=== PATIENT | female | born 1980 | race Two or more races ===

== ENCOUNTER 2018-01-06 18:42 | Emergency (ER) | payer OTHER ==
[~2018-01-06] VITALS: Ht 162.6 cm; Wt 74.8 kg
[2018-01-07 00:29] VITALS: BP 139/88
[2018-01-07] MEDS ORDERED: CYCLOBENZAPRINE HCL 10 MG TAB PO ONE (00:45)
[2018-01-07] MEDS ORDERED: IBUPROFEN 600 MG TAB PO ONE (00:45)
== END 2018-01-07 01:44 | disposition home or self-care (01) ==
LOC: ER 18:47
DX: S39.012A Strain of muscle, fascia and tendon of lower back, initial encounter (principal); S00.83XA Contusion of other part of head, initial encounter; V43.52XA Car driver injured in collision with other type car in traffic accident, initial encounter; Y93.89 Activity, other specified; Y99.8 Other external cause status; Y92.410 Unspecified street and highway as the place of occurrence of the external cause
CPT/HCPCS: 70486; 72131

== ENCOUNTER 2019-08-18 10:32 | Emergency (ER) | payer BC ==
[~2019-08-18] VITALS: Ht 162.6 cm; Wt 72.6 kg
[2019-08-18 11:20] LABS: Basophils # (auto) 0.1 uL; Eosinophils # (auto) 0.2 uL; Eosinophils % (auto) 2.8 % (0.0-7.0); Hematocrit 43.8 % (36.0-46.0); Lymphocytes # (auto) 1.4 uL; Lymphocytes % (auto) 23.4 % (10.0-50.0); Mean Corpuscular Hemoglobin 31.8 pg (28.0-32.0); Mean Corpuscular Hgb Conc. 34.3 g/dL (32.0-36.0); Mean Corpuscular Volume 92.8 fL (80.0-100.0); Monocytes # (auto) 0.5 uL; Monocytes % (auto) 7.9 % (0.0-12.0); Neutrophils # (auto) 3.9 uL; Neutrophils % (auto) 64.9 % (37.0-80.0); Nucleated Red Blood Cells % 0.1 %; Platelet Count (auto) 178 10^3/uL (140-450); Red Blood Cells 4.72 10^6/uL (4.0-5.20); Red Cell Distribution Width 13.2 % (11.8-14.3); White Blood Cell 6.1 10^3/uL (4.4-10.8)
[2019-08-18 11:35] LABS: Chloride 109 mmol/L (98-107); Potassium 3.8 mmol/L (3.5-5.1); Sodium 142 mmol/L (136-145)
[2019-08-18 11:47] LABS: Alanine Aminotransferase 17 U/L (13-56); Albumin 3.8 g/dL (3.4-5.0); Alkaline Phosphatase 59 U/L (45-117); Anion Gap 6 (5-15); Aspartate Aminotransferase 11 U/L (15-37); BUN/Creatinine Ratio 13.2; Bilirubin, Total 3.4 mg/dL (0.2-1.0); Blood Urea Nitrogen 9 mg/dL (7-18); Calcium 8.6 mg/dL (8.5-10.1); Carbon Dioxide 27 mmol/L (21-32); GFR African American 125 mL/min; GFR Non-African American 103 mL/min; Glucose 97 mg/dL (74-106); Total Protein 6.9 g/dL (6.4-8.2)
[2019-08-18 14:20] VITALS: BP 115/48
== END 2019-08-18 14:27 | disposition home or self-care (01) ==
LOC: ER 10:32
DX: G43.909 Migraine, unspecified, not intractable, without status migrainosus (principal)
CPT/HCPCS: 36415; 70450; 80053; 84484; 85025; 94761

== ENCOUNTER 2024-03-21 18:12 | Emergency (ER) | payer BC, OTHER ==
[~2024-03-21] VITALS: Ht 162.6 cm; Wt 68.1 kg
[2024-03-21 21:26] VITALS: BP 130/70; PULSE 80; RESP 18; TEMP 99.5; O2SAT 99
[2024-03-21] MEDS: LIDOCAINE 5% TOPICAL PATCH TOP ONE (21:42)
[2024-03-21] MEDS: KETOROLAC TROMETH 60MG/2ML VIAL IM ONE (21:42)
[2024-03-21] MEDS ORDERED: METH-1182 PO (21:55)
[2024-03-21] MEDS ORDERED: CYCL-614 PO (21:55)
== END 2024-03-21 22:01 | disposition home or self-care (01) ==
LOC: ER 18:12
DX: M54.42 Lumbago with sciatica, left side (principal)
CPT/HCPCS: 96372; 99283; J1885

== ENCOUNTER 2025-09-16 13:48 | Emergency (ER) | payer BC ==
[~2025-09-16] VITALS: Ht 162.6 cm; Wt 59.2 kg
[~2025-09-16 13:48] MED LIST: CYCL-614 PO; METH-1182 PO
--- NOTE | 2025-09-16 15:11 | ED.PDOC ---
Musculoskeletal HPI Comments A 45 YEAR OLD FEMALE PRESENTS TO THE ED WITH COMPLAINT OF FALL INJURY. PT STATES SHE WAS AT WORK THURSDAY, 2 DAYS PRIOR AND HAD SLIP AND FELL. PT DENIES ANY HEAD INJURY BUT HAS SINCE BEEN HAVING LOWER BACK PAIN, R SIDED HIP PAIN AND R KNEE PAIN. PT HAS BEEN TAKING PAIN MEDICATIONS BUT HAS SINCE BEEN HAVING INCREASED PAIN WITH BEARING WEIGHT AND WHEN ATTEMPTING TO EXTEND R KNEE. PATIENT DENIES FEVER, CHILLS, SHORTNESS OF BREATH, CHEST PAIN, ABDOMINAL PAIN, NAUSEA, VOMITING, HEADACHE, OR OTHER COMPLAINTS. NO OTHER SYMPTOMS OR MODIFYING FACTORS AT THIS TIME. PATIENT IS ALERT, ORIENTED X 4, AND HAS STEADY GAIT. Chief Complaint: Fall Injury Time Seen by MD: 15:08 Primary Care Provider: UNK Reviewed Notes: Nurses Notes, Medications, Allergies Allergies: Coded Allergies: NO KNOWN ALLERGIES (Unverified , 01/06/18) Home Meds Active Scripts Hydrocodone-Acetaminophen (Hydrocodone Bitartrate/AC 5-325 mg) 1 Tab Tab, 1 TAB PO BID, #14 TAB Prov:GUY KEATING 09/16/25 Methocarbamol (Methocarbamol) 750 Mg Tab, 750 MG PO BID, #20 TAB Prov:GUY KEATING 09/16/25 Cyclobenzaprine HCl (Cyclobenzaprine Hydrochlo) 5 Mg Tab, 5 MG PO TIDPRN PRN, #15 TAB Prov:STEPHANIE MEADOWS 03/21/24 Methocarbamol (Methocarbamol) 750 Mg Tab, 1500 MG PO QID for 30 Days, #240 TAB Prov:STEPHANIE MEADOWS 03/21/24 Information Source: Patient Mode of Arrival: Ambulatory Brought in by: SELF Location: Right Extremity Location: Back, Hip, Knee Timing: Days Prehospital treatment: None Severity: Moderate Able to Move Extremity: Yes Bear Weight: Limited Pain: Moderate Hand Dominance: Right Mechanism: Hyperextension Circumstances: Work Related, Fall Symptoms: Pain DVT Risk Factors: NONE Last Tetanus: UTD Associated signs and symptoms: Knee pain, Back pain, Hip pain Past Medical History PAST MEDICAL HISTORY: Denies Past Medical History (Other): chronic low back pain Surgical History: Denies all surgeries PROJECT FACILITATOR History: No Pertinent PROJECT FACILITATOR History Family History Family History: Reviewed,noncontributory to illness Social History Smoker: Non-Smoker Alcohol: Occasionally Drugs: Denies Drug Use Lives In: Home Constitutional: denies: chills, diaphoresis, fatigue, fever, malaise, sweats, weakness, others EENTM: denies: blurred vision, double vision, ear bleeding, ear discharge, ear drainage, ear pain, ear ringing, eye pain, eye redness, hearing loss, mouth pain, mouth swelling, nasal discharge, nose bleeding, nose congestion, nose pain, photophobia, tearing, throat pain, throat swelling, voice changes, others Respiratory: denies: cough, hemoptysis, orthopnea, SOB at rest, shortness of breath, SOB with excertion, stridor, wheezing, others Cardiovascular: denies: chest pain, dizzy spells, diaphoresis, Dyspnea on exe rtion, edema, irregular heart beat, left arm pain, lightheadedness, palpitations, PND, syncope, others Gastrointestinal: denies: abdomen distended, abdominal pain, blood streaked bowels, constipated, diarrhea, dysphagia, difficulty swallowing, hematemesis, melena, nausea, poor appetite, poor fluid intake, rectal bleeding, rectal pain, vomiting, others Genitourinary: denies: abnormal vagina bleeding, burning, dyspareunia, dysuria, flank pain, frequency, hematuria, incontinence, pain, , vagina discharge, urgency, others Neurological: denies: dizziness, fainting, headache, left sided numbness, left sided weakness, numbness, paresthesia, pre-existing deficit, right sided numbness, right sided weakness, seizure, speech problems, tingling, tremors, weakness, others Musculoskeletal: reports: back pain, joint pain (R KNEE), joint swelling, muscle pain; denies: gout, muscle stiffness, neck pain, others Integumetry: denies: bruises, change in color, change in hair/nails, dryness, laceration, lesions, lumps, rash, wounds, others Allergic/Immunocompromised: denies: Difficulty Healing, Frequent Infections, Hives, Itching, others Hematologic/Lymphatic: denies: anemia, blood clots, easy bleeding, easy bruising, swollen glands, others Endocrine: denies: excessive hunger, excessive sweating, excessive thirst, excessive urination, flushing, intolerance to cold, intolerance to heat, unexplained weight gain, unexplained weight loss, others Psychiatric: denies: anxiety, bipolar disorder, depression, hopeless, panic disorder, schizophrenia, sleepless, suicidal, others All Other Systems: Reviewed and Negative Physical Exam General Appearance: No Apparent Distress, Normal HEENT: Normal ENT Inspection, PERRL/EOMI, Pharynx Normal, TMs Normal Neck: Full Range of Motion, Non-Tender, Normal, Normal Inspection Respiratory: Chest Non-Tender, Lungs Clear, No Accessory Muscle Use, No Respiratory Distress, Normal Breath Sounds Cardiovascular: No Edema, No JVD, No Murmur, No Gallop, Normal Peripheral Pulses, Regular Rate/Rhythm Breast Exam: Deferred Gastrointestinal: No Organomegaly, Non Tender, No Pulsatile Mass, Normal Bowel Sounds, Soft Genitalia: Deferred Pelvic: Deferred Rectal: Deferred Extremities: Decreased range of motion, No calf tenderness, Normal capillary refill, No pedal edema, Swelling (TENDERNESS AND MILD SWELLING ON RIGHT KNEE, NO BONY TENDERNESS, SWELLING AND DEFORMITY. ), Tender (ON RIGHT HIP, NO BONY TENDERNESS, SWELLING AND DEFORMITY. ) Musculoskeletal : Location: Bilateral Extremity Location: Back Apperance: Tenderness: Moderate (TENDERNESS AND MUSCLE SPASM ON LOWER BACK, NO BONY TENDERNESS, SWELLING AND DEFORMITY. ) Neurologic: Alert, bioassayist II-XII nml as Tested, No Motor Deficits, Normal Affect, Normal Mood, No Sensory Deficits Cerebellar Function: Normal Reflexes: Normal Skin: Dry, Normal Color, Warm Peripheral Pulses: 2+ carotid (R), 2+ carotid (L), 2+ dorsalis pedis (R), 2+ dorsalis pedis (L) Lymphatic: No Adenopathy Was a procedure done? Was a procedure done?: No Differential Diagnosis EXT Differential Diagnosis: Fracture, Sprain, DJD, Strain, Bursitis Other Differential Diagnosis LUMBAR RADICULOPATHY, R KNEE SPRAIN, MUSCLE STRAIN, SPASM X-Ray, Labs, Meds, VS Vital Signs Date Time Temp Pulse Resp B/P (MAP) Pulse Ox O2 Delivery O2 Flow Rate FiO2 09/16/25 13:52 98.3 80 18 124/75 97 98.3 Current Medications Medications (Trade) Dose Ordered Sig/Kamari Route Start Time Stop Time Status Last Admin Acetaminophen/ Hydrocodone Bitart ([place] 5/325MG Tab) 1 tab ONCE ONCE PO 09/16/25 15:00 09/16/25 15:01 DC 09/16/25 15:32 [place] [id number] Ph: [phone] DIAGNOSTIC IMAGING Diagnostic Imaging Report : [id number] Signed PATIENT: LONG BRIDGES ACCT: [id number] UNIT: [id number] : 1980 LOC: ER ROOM / BED: / AGE / SEX: 45 / F ADM STATUS: REG ER SERVICE [facility] ORDERING PHYSICIAN: GUY KEATING PROCEDURE(s): LUMB2 - LUMBAR SPINE 3 VIEW REASON: FALL ORDER NUMBER(s): [id number], ACCESSION NUMBER(s): [id number] EXAM: XY LUMBAR SPINE 3 VIEW INDICATION: FALL TECHNIQUE: 3 views of the lumbar spine COMPARISON: None FINDINGS/IMPRESSION: No radiographic evidence of an acute osseous abnormality. There is no acute fracture, osseous malalignment, or aggressive focal osseous lesion. No endplate compression fracture, spondylolisthesis, or pars defect. ATED BY: DEVYN ANDRADE MD DICTATED DATE/TIME: 09/16/251556 SIGNED BY: DEVYN ANDRADE MD SIGNED DATE/TIME: 09/16/25 155 CC: [place] [id number] Ph: [phone] DIAGNOSTIC IMAGING Diagnostic Imaging Report : [id number] Signed PATIENT: LONG BRIDGES ACCT: [id number] UNIT: [id number] : 1980 LOC: ER ROOM / BED: / AGE / SEX: 45 / F ADM STATUS: REG ER SERVICE [facility] ORDERING PHYSICIAN: GUY KEATING PROCEDURE(s): RKNE2 - R KNEE 2V XRAY REASON: FALL ORDER NUMBER(s): [id number], ACCESSION NUMBER(s): [id number] EXAM: XY R KNEE 2V XRAY INDICATION: FALL TECHNIQUE: 2 views of the right knee COMPARISON: XY R HIP COMPLETE XRAY on DOS: 09/16/25 FINDINGS: No radiographic evidence of an acute osseous abnormality. There is no acute fracture, osseous malalignment, or aggressive focal osseous lesion. There is no radiographically apparent joint space narrowing. No joint effusion. IMPRESSION: 1. No radiographic evidence of an acute osseous abnormality. ATED BY: DEVYN ANDRADE MD DICTATED DATE/TIME: 09/16/251557 SIGNED BY: DEVYN ANDRADE MD SIGNED DATE/TIME: 09/16/251557 CC: [place] [id number] Ph: [phone] DIAGNOSTIC IMAGING Diagnostic Imaging Report : [id number] Signed PATIENT: LONG BRIDGES ACCT: [id number] UNIT: [id number] : 1980 LOC: ER ROOM / BED: / AGE / SEX: 45 / F ADM STATUS: REG ER SERVICE 50 ORDERING PHYSICIAN: GUY KEATING PROCEDURE(s): RHIP - R HIP COMPLETE XRAY REASON: FALL ORDER NUMBER(s): [id number], ACCESSION NUMBER(s): [id number] EXAM: XY R HIP COMPLETE XRAY INDICATION: FALL TECHNIQUE: Frontal radiographs of the hip and pelvis and frog-leg lateral view left hip COMPARISON: None FINDINGS/IMPRESSION: No radiographic evidence of an acute fracture, osseous malalignment, or aggressive osseous lesion. No radiographic evidence of significant hip joint space loss. Symmetric sacroiliac joints. Normal pubic symphyseal joint. ATED BY: DEVYN ANDRADE MD DICTATED DATE/TIME: 09/16/251557 SIGNED BY: DEVYN ANDRADE MD SIGNED DATE/TIME: 09/16/251557 CC: X-Ray, Labs, Meds, VS Comment COURSE: EXTERNAL MEDICAL RECORDS REVIEWED: [NONE] INDEPENDENT HISTORIANS: [NONE] SOCIAL DETERMINANTS OF HEALTH: [NONE] LABS ORDERED: NONE REVIEWED AND INTERPRETED RESULTS: NONE IMAGING ORDERED: R HIP X-RAY, R KNEE X-RAY, LUMBAR SPINE X-RAY TREATMENTS ORDERED: NORCO 5/325 1 TAB PO PROCEDURES PERFORMED: NONE CRITICAL CARE TIME: NONE I HAVE DISCUSSED THE PATIENT WITH THE ATTENDING PHYSICIAN, DR. WALTER, HE AGREES WITH THE PATIENT'S PLAN OF CARE AND DISPOSITION. BASED ON HISTORY OF PRESENT ILLNESS, AND PHYSICAL EXAM, PATIENT WILL BE DISCHARGED HOME. DISCUSSED PLAN FOR DISCHARGE HOME WITH RX [NORCO AND ROBAXIN]. MEDICATION WARNINGS GIVEN. SHARED DECISION MAKING: DISCUSSED WITH PATIENT THAT THEIR WORKUP WAS NORMAL. PATIENT INSTRUCTED TO FOLLOW UP WITH PRIMARY CARE PROVIDER IN 1-2 DAYS FOR RE- EVALUATION OF SYMPTOMS. PATIENT VERBALIZES UNDERSTANDING TO RETURN TO ED FOR NEW OR WORSENING SYMPTOMS OR IF FOLLOW UP WITH PCP CANNOT BE OBTAINED. PATIENT FEELS COMFORTABLE GOING HOME AT THIS TIME. ALL QUESTIONS ADDRESSED AT TIME OF DISCHARGE. Time of 1ST Reevaluation: 15:40 Reevaluation 1ST: Improved Patient Education/Counseling: Diagnosis, Treatment, Need For Follow Up Family Education/Counseling: Diagnosis, Treatment, Need For Follow Up Medical Screening: No EMC Exist At This Time Departure 1 Departure Time of Disposition: 16:32 Impression: Primary Impression: Strain of muscle, fascia and tendon of lower back, initial encounter Additional Impressions: Right knee sprain Qualified Codes: S83.8X1A - Sprain of other specified parts of right knee, initial encounter Strain of right hip Qualified Codes: S76.011A - Strain of muscle, fascia and tendon of right hip, initial encounter Status post fall Disposition: 01 HOME / SELF CARE / HOMELESS Condition: Stable Additional Instructions: INSTRUCTIONS: FOLLOW-UP WITH [facility] IN 1 TO 2 DAYS. TAKE MEDICATIONS PRESCRIBED. RETURN TO ED FOR ANY NEW OR WORSENING SYMPTOMS. e-Prescriptions Hydrocodone-Acetaminophen (Hydrocodone Bitartrate/AC 5-325 mg) 1 Tab Tab 1 TAB PO BID, #14 TAB Prov: GUY KEATING 09/16/25 Methocarbamol (Methocarbamol) 750 Mg Tab 750 MG PO BID, #20 TAB Prov: GUY KEATING 09/16/25 Discharged With: Self, Relative Critical Care Note Critical Care Time?: No Stability Stability form required: No Heart Score Heart Score: Heart Score Response (Comments) Value History N/A 0 EKG N/A 0 Age N/A 0 Risk Factors N/A 0 Troponin N/A 0 Total 0 I personally scribed for GUY KEATING ([email or web address]) on 09/16/25 at 15:11. Electronically submitted by Nathen Beckwith ([email or web address]). I personally scribed for GUY KEATING ([email or web address]) on 09/16/25 at 16:13. Electronically submitted by Nathen Beckwith ([email or web address]). GUY KEATING Sep 16, 2025 15:11
[2025-09-16] MEDS: HYDROcodone-ACET 5/325MG TAB PO ONE (15:32)
--- NOTE | 2025-09-16 16:00 | DVH ---
EXAM: XY LUMBAR SPINE 3 VIEW INDICATION: FALL TECHNIQUE: 3 views of the lumbar spine COMPARISON: None FINDINGS/IMPRESSION: No radiographic evidence of an acute osseous abnormality. There is no acute fracture, osseous malalig nment, or aggressive focal osseous lesion. No endplate compression fracture, spondylolisthesis, or pa rs defect.
--- NOTE | 2025-09-16 16:00 | DVH ---
EXAM: XY R HIP COMPLETE XRAY INDICATION: FALL TECHNIQUE: Frontal radiographs of the hip and pelvis and frog-leg lateral view left hip COMPARISON: None FINDINGS/IMPRESSION: No radiographic evidence of an acute fracture, osseous malalignment, or aggressive osseous lesion. N o radiographic evidence of significant hip joint space loss. Symmetric sacroiliac joints. Normal pu bic symphyseal joint.
--- NOTE | 2025-09-16 16:00 | DVH ---
EXAM: XY R KNEE 2V XRAY INDICATION: FALL TECHNIQUE: 2 views of the right knee COMPARISON: XY R HIP COMPLETE XRAY on DOS: 09/16/25 FINDINGS: No radiographic evidence of an acute osseous abnormality. There is no acute fracture, osseous malalig nment, or aggressive focal osseous lesion. There is no radiographically apparent joint space narrowin g. No joint effusion. IMPRESSION: 1. No radiographic evidence of an acute osseous abnormality.
[2025-09-16] MEDS ORDERED: HYDR-4902 PO (16:24)
[2025-09-16] MEDS ORDERED: METH-1182 PO (16:24)
[2025-09-16 16:34] VITALS: BP 122/76; TEMP 98.2
[2025-09-16 16:42] VITALS: PULSE 64; RESP 16; O2SAT 95
== END 2025-09-16 16:43 | disposition home or self-care (01) ==
LOC: ER 13:48
DX: S83.91XA Sprain of unspecified site of right knee, initial encounter (principal); S76.011A Strain of muscle, fascia and tendon of right hip, initial encounter; S39.012A Strain of muscle, fascia and tendon of lower back, initial encounter; F10.90 Alcohol use, unspecified, uncomplicated; G89.29 Other chronic pain; Z79.899 Other long term (current) drug therapy; Z79.891 Long term (current) use of opiate analgesic; W19.XXXA Unspecified fall, initial encounter; Y93.89 Activity, other specified; Y92.89 Other specified places as the place of occurrence of the external cause; Y99.8 Other external cause status; Y90.9 Presence of alcohol in blood, level not specified
CPT/HCPCS: 72100; 73502; 73560

== ENCOUNTER 2025-10-24 10:14 | Inpatient (IN) | payer BC ==
[~2025-10-24] VITALS: Ht 162.6 cm; Wt 63.3 kg
[~2025-10-24 10:14] MED LIST changes: +HYDR-4902 PO
--- NOTE | 2025-10-24 10:54 | ED.PDOC ---
General HPI Comments 45 year old female with PMHx kidney stones presents to the ED with a chief complaint of bilateral flank pain onset 2 days. Patient states she has been experiencing bilateral flank pain for the past 2 days as well as urinary frequency and nausea/vomiting. Patient has experienced kidney stones in the past, pain is similar. Denies fever, chills, dysuria, hematuria, vaginal discharge, dizziness, headache. No other symptoms or modifying factors present a t this time. Chief Complaint: Flank Pain Time Seen by MD: 10:45 Primary Care Provider: UNK Reviewed notes: Medications, Allergies Allergies: Coded Allergies: NO KNOWN ALLERGIES (Unverified , 01/06/18) Home Meds Active Scripts Hydrocodone-Acetaminophen (Hydrocodone Bitartrate/AC 5-325 mg) 1 Tab Tab, 1 TAB PO BID, #14 TAB Prov:GUY KEATING 09/16/25 Methocarbamol (Methocarbamol) 750 Mg Tab, 750 MG PO BID, #20 TAB Prov:GUY KEATING 09/16/25 Cyclobenzaprine HCl (Cyclobenzaprine Hydrochlo) 5 Mg Tab, 5 MG PO TIDPRN PRN, #15 TAB Prov:STEPHANIE MEADOWS 03/21/24 Methocarbamol (Methocarbamol) 750 Mg Tab, 1500 MG PO QID for 30 Days, #240 TAB Prov:STEPHANIE MEADOWS 03/21/24 Information Source: Patient, Spouse Mode of Arrival: Ambulatory Severity: Moderate Timing: Days Duration: Since onset Prehospital treatment: None Onset: Spontaneous Symptoms: Frequency History of: Kidney stone Location: (R) Flank, (L)Flank Modifying factors: None associated signs and symptoms: Nausea, Vomiting, Flank Pain, Frequency Past Medical History PAST MEDICAL HISTORY: Kidney Stones Surgical History: Denies all surgeries LIBRARY CATALOGING TECHNICIAN History: No Pertinent LIBRARY CATALOGING TECHNICIAN History Family History Family History: Reviewed,noncontributory to illness Social History Smoker: Non-Smoker Alcohol: Occasionally Drugs: Marijuana Lives In: Home Constitutional: denies: chills, diaphoresis, fatigue, fever, malaise, sweats, weakness, others EENTM: denies: blurred vision, double vision, ear bleeding, ear discharge, ear drainage, ear pain, ear ringing, eye pain, eye redness, hearing loss, mouth pain, mouth swelling, nasal discharge, nose bleeding, nose congestion, nose pain, photophobia, tearing, throat pain, throat swelling, voice changes, others Respiratory: denies: cough, hemoptysis, orthopnea, SOB at rest, shortness of breath, SOB with excertion, stridor, wheezing, others Cardiovascular: denies: chest pain, dizzy spells, diaphoresis, Dyspnea on exertion, edema, irregular heart beat, left arm pain, lightheadedness, palpitations, PND, syncope, others Gastrointestinal: reports: nausea, vomiting; denies: abdomen distended, abdominal pain, blood streaked bowels, constipated, diarrhea, dysphagia, difficulty swallowing, hematemesis, melena, poor appetite, poor fluid intake, rectal bleeding, rectal pain, others Genitourinary: reports: flank pain, frequency; denies: abnormal vagina bleeding, burning, dyspareunia, dysuria, hematuria, incontinence, pain, , vagina discharge, urgency, others Neurological: denies: dizziness, fainting, headache, left sided numbness, left sided weakness, numbness, paresthesia, pre-existing deficit, right sided numbness, right sided weakness, seizure, speech problems, tingling, tremors, weakness, others Musculoskeletal: denies: back pain, gout, joint pain, joint swelling, muscle pa in, muscle stiffness, neck pain, others Integumetry: denies: bruises, change in color, change in hair/nails, dryness, laceration, lesions, lumps, rash, wounds, others Allergic/Immunocompromised: denies: Difficulty Healing, Frequent Infections, Hives, Itching, others Hematologic/Lymphatic: denies: anemia, blood clots, easy bleeding, easy bruising, swollen glands, others Endocrine: denies: excessive hunger, excessive sweating, excessive thirst, excessive urination, flushing, intolerance to cold, intolerance to heat, unexplained weight gain, unexplained weight loss, others Psychiatric: denies: anxiety, bipolar disorder, depression, hopeless, panic disorder, schizophrenia, sleepless, suicidal, others All Other Systems: Reviewed and Negative Physical Exam General Appearance: Moderate Distress, Normal HEENT: Normal ENT Inspection, Pharynx Normal, TMs Normal Neck: Full Range of Motion, Non-Tender, Normal, Normal Inspection Respiratory: Chest Non-Tender, Lungs Clear, No Accessory Muscle Use, No Respiratory Distress, Normal Breath Sounds Cardiovascular: No Edema, No JVD, No Murmur, No Gallop, Normal Peripheral Pulses, Regular Rate/Rhythm Breast Exam: Deferred Gastrointestinal: No Organomegaly, Non Tender, No Pulsatile Mass, Normal Bowel Sounds, Soft Genitalia: Deferred Pelvic: Deferred Rectal: Deferred Extremities: No calf tenderness, Normal capillary refill, Normal inspection, Normal range of motion, Non-tender, No pedal edema Musculoskeletal : Apperance: Normal Neurologic: Alert, marketing intelligence analyst II-XII nml as Tested, No Motor Deficits, Normal Affect, Normal Mood, No Sensory Deficits Cerebellar Function: Normal Reflexes: Normal Skin: Dry, Normal Color, Warm Peripheral Pulses: 3+ Radial (R), 3+ Radial (L) Lymphatic: No Adenopathy Was a procedure done? Was a procedure done?: No Differential Diagnosis Kidney stone (Female): Musculoskeletal pain, Urinary obstruction, Urolithiasis X-Ray, Labs, Meds, VS Vital Signs Date Time Temp Pulse Resp B/P (MAP) Pulse Ox O2 Delivery O2 Flow Rate FiO2 10/24/25 12:12 57 16 99 Room Air* 0 21 10/24/25 12:12 57 16 125/69 (87) 99 10/24/25 10:16 97.9 55 16 141/89 99 97.9 Lab Test 10/24/25 11:22 10/24/25 10:55 Range/Units White Blood Count 5.5 4.4-10.8 10^3/uL Red Blood Count 4.47 4.0-5.20 10^6/uL Hemoglobin 14.7 12.2-16.2 g/dL Hematocrit 43.5 36.0-46.0 % Mean Corpuscular Volume 97.3 80.0-100.0 fL Mean Corpuscular Hemoglobin 32.9 H 28.0-32.0 pg Mean Corpuscular Hemoglobin Concent 33.8 32.0-36.0 g/dL Red Cell Distribution Width 12.9 11.8-14.3 % Platelet Count 196 140-450 10^3/uL Mean Platelet Volume 10.0 6.9-10.8 fL Neutrophils (%) (Auto) 57.7 37.0-80.0 % Lymphocytes (%) (Auto) 33.1 10.0-50.0 % Monocytes (%) (Auto) 7.1 0.0-12.0 % Eosinophils (%) (Auto) 1.3 0.0-7.0 % Basophils (%) (Auto) 0.8 0.0-2.0 % Neutrophils # (Auto) 3.2 1.6-8.6 10 ^3/uL Lymphocytes # (Auto) 1.8 0.4-5.4 10 ^3/uL Monocytes # (Auto) 0.4 0-1.3 10 ^3/uL Eosinophils # (Auto) 0.1 0-0.8 10 ^3/uL Basophils # (Auto) 0 0-0.2 10 ^3/uL Nucleated Red Blood Cells 0.0 % Sodium Level 143 136-145 mmol/L Potassium Level 3.3 L 3.5-5.1 mmol/L Chloride Level 107 98-107 mmol/L Carbon Dioxide Level 26 20-31 mmol/L Anion Gap 10 5-15 Blood Urea Nitrogen 12 9-23 mg/dL Creatinine 0.65 0.550-1.02 mg/dL Glomerular Filtration Rate Calc 112 >90 mL/min BUN/Creatinine Ratio 18.5 10.0-20.0 Serum Glucose 88 74-106 mg/dL Calcium Level 9.3 8.7-10.4 mg/dL Urine Color Light-yellow Yellow Urine Clarity Clear Clear Urine pH 7.0 5.0-9.0 Urine Specific [place] 1.014 1.001-1.035 Urine Protein Negative Negative Urine Ketones Negative Negative Urine Blood 3+ H Negative /uL Urine Nitrite Negative Negative Urine Bilirubin Negative Negative Urine Urobilinogen Normal Negative mg/dL Urine Leukocyte Esterase Negative Negative /uL Urine RBC 7 0 - 4 /hpf Urine Microscopic WBC 3 0-5 /HPF Urine Squamous Epithelial Cells Few <5 /hpf Urine Bacteria Few H None Seen /hpf Urine Glucose Normal Normal mg/dL Current Medications Medications (Trade) Dose Ordered Sig/Kamari Route Start Time Stop Time Status Last Admin Ondansetron HCl (Zofran) 4 mg ONCE ONCE IV 10/24/25 11:00 10/24/25 11:01 DC 10/24/25 12:35 Sodium Chloride 1,000 ml @ 1,000 mls/hr Q1H ONCE IVB 10/24/25 11:00 10/24/25 11:59 DC 10/24/25 12:35 Ketorolac Tromethamine (Toradol Injection) 30 mg ONCE ONCE IV 10/24/25 11:00 10/24/25 11:01 DC 10/24/25 12:35 Patient alert. Came in because of flank pain. Vitals stable. Answering questions. Establish intravenous access. Was given fluids. Was given pain medication. Patient continues to have abdominal pain. CT scan of the abdomen reviewed does show cystitis possibly passed a kidney stone ovarian mass possibly cystic. Explained to the patient. Continue monitoring. [place] [id number] Ph: [phone] DIAGNOSTIC IMAGING Diagnostic Imaging Report : [id number] Signed PATIENT: LONG BRIDGES ACCT: [id number] UNIT: [id number] : 1980 LOC: ER ROOM / BED: / AGE / SEX: 45 / F ADM STATUS: REG ER SERVICE 1053 ORDERING PHYSICIAN: LIZA WALTER MD PROCEDURE(s): ABPL - CT AB PEL WO CON-NO ORAL OR IV REASON: stone ORDER NUMBER(s): [id number], ACCESSION NUMBER(s): [id number] Exam: CT CT AB PEL WO CON-NO ORAL OR IV History: Stone. Comparison Study: Report from CT abdomen pelvis 11/02/2023. Technique: Multidetector spiral CT of the abdomen and pelvis was performed from lung bases to pubic symphysis. Imaging was performed without intravenous contrast. Coronal and sagittal multiplanar reformats were obtained from the axial data set by the technologist. Radiation Dose : 1. Abdomen/Pelvis: CTDIvol 5.5 mGy, DLP 273.5 mGy*cm. Findings: Evaluation of vasculature and solid organs is limited due to lack of intravenous contrast use. Lung Bases: Lung bases are clear. Visualized portions of the heart and pericardium are unremarkable. Liver: The liver is normal in size. No focal lesions. Gallbladder and Biliary Tree: The gallbladder is unremarkable No intrahepatic or extrahepatic biliary ductal dilatation. Spleen: Unremarkable Pancreas: The pancreas is grossly unremarkable. Adrenal Glands: Unremarkable Kidneys: Kidneys are unremarkable without calculi or hydronephrosis. GI tract: The stomach is grossly normal in appearance. No evidence of small bowel wall thickening or abnormal dilatation to suggest bowel obstruction. The colon is unremarkable. The appendix is visualized and is normal in caliber. Peritoneum/mesentery/retroperitoneum. No evidence of free intraperitoneal air. No ascites. No evidence of suspicious lymphadenopathy. Abdominal Wall: Unremarkable. Vasculature: The visualized abdominal aorta is normal in size and caliber. Evaluation of abdominal and pelvic vessels is limited due to lack of intravenous contrast. Urinary Bladder: Underdistended urinary bladder. There is mucosal thickening of the 3 mm. Pelvic Organs: Uterus appears enlarged. There is a left adnexal cystic mass measuring 3.1 cm. Musculoskeletal: No aggressive focal bony lesions, acute fractures or dislocation. IMPRESSION: 1. Mild wall thickening of the urinary bladder measuring up to 3 mm could be related to underdistention. Cystitis is not excluded. 2. Enlarged uterus with a left adnexal cystic mass measuring 3.1 cm. Recommend further evaluation with pelvic ultrasound. ATED BY: INEZ CARROLL MD DICTATED DATE/TIME: 10/24/251131 SIGNED BY: INEZ CARROLL MD SIGNED DATE/TIME: 10/24/25 113 CC: Time of 1ST Reevaluation: 11:15 Reevaluation 1ST: Unchanged Patient Education/Counseling: Diagnosis, Treatment, Prognosis Family Education/Counseling: Diagnosis, Treatment, Prognosis SEPSIS Sepsis Screen Date sepsis recognized/suspect: Oct 24, 2025 Time Sepsis recognized/suspect: 1016 Recent Procedure: No On Antibiotic Therapy: No Respiratory Rate >20: No Heart Rate >90: No Temp<36 C (96.8 F) or >38.3 C: No SBP <90 or MAP <65 mmHG: No New Acute Mental Status Change: No Is the patient on CPAP, BIPAP,: No Physician Orders Urinalysis (10/24/25 10:53) Ct Ab Pel Wo Con-No Oral Or Iv (10/24/25 10:53) Vital Signs Date Time Temp Pulse Resp B/P (MAP) Pulse Ox O2 Delivery O2 Flow Rate FiO2 10/24/25 12:12 57 16 99 Room Air* 0 21 10/24/25 12:12 57 16 125/69 (87) 99 10/24/25 10:16 97.9 55 16 141/89 99 97.9 Laboratory Tests Test 10/24/25 11:22 White Blood Count 5.5 10^3/uL (4.4-10.8) Medications Medications Dose Ordered Sig/Kamari Route Start Time Stop Time Status Last Admin Dose Admin Ketorolac Tromethamine 30 mg ONCE ONCE IV 10/24/25 11:00 10/24/25 11:01 DC 10/24/25 12:35 Ondansetron HCl 4 mg ONCE ONCE IV 10/24/25 11:00 10/24/25 11:01 DC 10/24/25 12:35 Sodium Chloride 1,000 ml @ 1,000 mls/hr Q1H ONCE IVB 10/24/25 11:00 10/24/25 11:59 DC 10/24/25 12:35 Departure 1 Departure Time of Disposition: 11:41 Impression: Primary Impression: Acute abdominal pain Additional Impressions: Cystitis Ovarian mass Disposition: ADMITTED INPATIENT Admit to: Med Surg Condition: Guarded Critical Care Note Critical Care Time?: No Stability Stability form required: No Heart Score Heart Score: Heart Score Response (Comments) Value History N/A 0 EKG N/A 0 Age N/A 0 Risk Factors N/A 0 Troponin N/A 0 Total 0 I personally scribed for LIZA WALTER MD ([email or web address]) on 10/24/25 at 10:54. Electronically submitted by Nadia Gross ([email or web address]). I personally scribed for LIZA WALTER MD ([email or web address]) on 10/24/25 at 11:43. Electronically submitted by Nadia Gross ([email or web address]). LIZA WALTER MD Oct 24, 2025 10:54
--- NOTE | 2025-10-24 11:35 | DVH ---
Exam: CT CT AB PEL WO CON-NO ORAL OR IV History: Stone. Comparison Study: Report from CT abdomen pelvis 11/02/2023. Technique: Multidetector spiral CT of the abdomen and pelvis was performed from lung bases to pubic symphysis. Imaging was performed without intravenous contrast. Coronal and sagittal multiplanar reformats were obtained from the axial data set by the technologist. Radiation Dose : 1. Abdomen/Pelvis: CTDIvol 5.5 mGy, DLP 273.5 mGy*cm. Findings: Evaluation of vasculature and solid organs is limited due to lack of intravenous contrast use. Lung Bases: Lung bases are clear. Visualized portions of the heart and pericardium are unremarkable. Liver: The liver is normal in size. No focal lesions. Gallbladder and Biliary Tree: The gallbladder is unremarkable No intrahepatic or extrahepatic biliary ductal dilatation. Spleen: Unremarkable Pancreas: The pancreas is grossly unremarkable. Adrenal Glands: Unremarkable Kidneys: Kidneys are unremarkable without calculi or hydronephrosis. GI tract: The stomach is grossly normal in appearance. No evidence of small bowel wall thickening or abnormal dilatation to suggest bowel obstruction. The colon is unremarkable. The appendix is visualized and is normal in caliber. Peritoneum/mesentery/retroperitoneum. No evidence of free intraperitoneal air. No ascites. No evidence of suspicious lymphadenopathy. Abdominal Wall: Unremarkable. Vasculature: The visualized abdominal aorta is normal in size and caliber. Evaluation of abdominal and pelvic vessels is limited due to lack of intravenous contrast. Urinary Bladder: Underdistended urinary bladder. There is mucosal thickening of the 3 mm. Pelvic Organs: Uterus appears enlarged. There is a left adnexal cystic mass measuring 3.1 cm. Musculoskeletal: No aggressive focal bony lesions, acute fractures or dislocation. IMPRESSION: 1. Mild wall thickening of the urinary bladder measuring up to 3 mm could be related to underdistention. Cystitis is not excluded. 2. Enlarged uterus with a left adnexal cystic mass measuring 3.1 cm. Recommend further evaluation with pelvic ultrasound.
[2025-10-24 11:50] LABS: Hematocrit 43.5 % (36.0-46.0); Hemoglobin 14.7 g/dL (12.2-16.2); Mean Corpuscular Hemoglobin 32.9 pg (28.0-32.0); Mean Corpuscular Volume 97.3 fL (80.0-100.0); Nucleated Red Blood Cells % 0.0 %
[2025-10-24 11:54] LABS: Sodium 143 mmol/L (136-145)
[2025-10-24 11:55] LABS: Anion Gap 10 (5-15); Carbon Dioxide 26 mmol/L (20-31)
[2025-10-24 11:56] LABS: Calcium 9.3 mg/dL (8.7-10.4)
[2025-10-24 11:57] LABS: Chloride 107 mmol/L (98-107); Potassium 3.3 mmol/L (3.5-5.1)
[2025-10-24 12:00] LABS: Glucose 88 mg/dL (74-106)
[2025-10-24 12:01] LABS: BUN/Creatinine Ratio 18.5 (10.0-20.0); Blood Urea Nitrogen 12 mg/dL (9-23)
[2025-10-24 12:12] VITALS: PULSE 57; RESP 16; O2SAT 99
[2025-10-24] MEDS: SODIUM CHLORIDE 0.9% 1,000 ML IVB ONE (12:35)
[2025-10-24] MEDS: KETOROLAC TROMETH 30 MG/ML 1ML VIAL IV ONE (12:35)
[2025-10-24] MEDS: ONDANSETRON HCL 4 MG/2 ML VIAL IV ONE (12:35)
[2025-10-24 12:44] LABS: Urine Protein, UAD Negative (Negative)
--- NOTE | 2025-10-24 14:09 | DVH ---
INDICATION: ovarytorision TECHNIQUE: Multiple real-time grayscale transabdominal and TV sonographic images along with color and duplex Doppler of the uterus and ovaries were obtained. COMPARISON: None FINDINGS: The uterus measures 8 x 4 x 6 cm. The endometrial stripe measures 0.3cm. The right ovary measures 3 x 2 x 1 cm. The left ovary measures 4 x 3 x 3 cm. 3 cm left ovarian cyst. Subsequent color and duplex Doppler interrogation of the ovaries demonstrated symmetric vascular flow to both ovaries, though this does not exclude the possibility of torsion due to the dual blood supply. IMPRESSION: 1. Hyperechoic shadowing structure in the posterior cul-de-sac measuring 1.4 x 1.3 x 0.8 cm. This correlates to calcification seen in the pelvis on CT dated 10/24/2025.
[2025-10-24 14:30] LABS: Alanine Aminotransferase 24.0 U/L (7-40); Alkaline Phosphatase 58.0 U/L (46-116); Total Protein 6.9 g/dL (5.7-8.2)
[2025-10-24 14:31] LABS: Albumin 4.5 g/dL (3.2-4.8)
[2025-10-24 14:32] LABS: Bilirubin, Direct 0.4 mg/dL (<0.3); Bilirubin, Total 5.3 mg/dL (0.2-1.0)
--- NOTE | 2025-10-24 14:46 | DVHHP2 ---
History of Present Illness History of Present Illness This is a 45-year-old female with a history of recurrent nephrolithiasis who came because she has been having bilateral flank discomfort for the past two days, associated with urinary tenesmus and chills. She denies dysuria but notes a sensation of incomplete emptying. She is currently menstruating. Home medications include baclofen, hydrocodoneacetaminophenand hydroxyzine; CBC is normal. CMP shows hypokalemia and indirect hyperbilirubinemia with total bilirubin 5.3 and direct bilirubin 0.4. UA shows 3+ blood but is limited by menstrual contamination. CT abdomen/pelvis shows mild bladder wall thickening possibly from underdistention versus early cystitis, and an enlarged uterus with a 3.1-cm left adnexal cyst. Pelvic ultrasound confirms a 3.1-cm left ovarian cyst with preserved blood flow and a small pelvic calcification that correlates with CT. PAST MEDICAL HISTORY: Kidney Stones INSURANCE COORDINATOR History: Patient stated she needed a procedure for possible cervical cancer on february 2025, she stated the doctor entered from her belly button and she had a small scar on [facility] Social History Smoker: Non-Smoker Alcohol: Occasionally Drugs: Marijuana Lives In: Home Review of Systems Review of Systems Positive for chills and urinary urgency sensation. Denies fever, dysuria, gross hematuria outside menstruation, nausea, vomiting, abdominal pain, chest pain, or respiratory symptoms. Allergies: Coded Allergies: NO KNOWN ALLERGIES (Unverified , 01/06/18) Medications Current Medications Medications Dose Ordered Sig/Kamari Route Start Time Stop Time Status Last Admin Dose Admin Acetaminophen 650 mg Q4HP PRN PO 10/24/25 14:15 Ketorolac Tromethamine 15 mg Q6HPRN PRN IV 10/24/25 14:15 10/29/25 14:14 Ceftriaxone Sodium 50 ml @ 100 mls/hr DAILY@09 IV 10/24/25 14:15 Exam Vital Signs Vital Signs Date Time Temp Pulse Resp B/P (MAP) Pulse Ox O2 Delivery O2 Flow Rate FiO2 10/24/25 12:12 57 16 99 Room Air* 0 21 10/24/25 12:12 125/69 (87) 10/24/25 10:16 97.9 97.9 Exam General: Alert, comfortable. Cardiac: Regular rate and rhythm. Respiratory: Clear breath sounds bilaterally. Abdomen: Soft, nondistended; mild bilateral CVA tenderness. Extremities: No edema. Neuro: Alert and oriented. Labs/Xrays Labs Test 10/24/25 11:22 10/24/25 10:55 Range/Units White Blood Count 5.5 4.4-10.8 10^3/uL Red Blood Count 4.47 4.0-5.20 10^6/uL Hemoglobin 14.7 12.2-16.2 g/dL Hematocrit 43.5 36.0-46.0 % Mean Corpuscular Volume 97.3 80.0-100.0 fL Mean Corpuscular Hemoglobin 32.9 H 28.0-32.0 pg Mean Corpuscular Hemoglobin Concent 33.8 32.0-36.0 g/dL Red Cell Distribution Width 12.9 11.8-14.3 % Platelet Count 196 140-450 10^3/uL Mean Platelet Volume 10.0 6.9-10.8 fL Neutrophils (%) (Auto) 57.7 37.0-80.0 % Lymphocytes (%) (Auto) 33.1 10.0-50.0 % Monocytes (%) (Auto) 7.1 0.0-12.0 % Eosinophils (%) (Auto) 1.3 0.0-7.0 % Basophils (%) (Auto) 0.8 0.0-2.0 % Neutrophils # (Auto) 3.2 1.6-8.6 10 ^3/uL Lymphocytes # (Auto) 1.8 0.4-5.4 10 ^3/uL Monocytes # (Auto) 0.4 0-1.3 10 ^3/uL Eosinophils # (Auto) 0.1 0-0.8 10 ^3/uL Basophils # (Auto) 0 0-0.2 10 ^3/uL Nucleated Red Blood Cells 0.0 % Sodium Level 143 136-145 mmol/L Potassium Level 3.3 L 3.5-5.1 mmol/L Chloride Level 107 98-107 mmol/L Carbon Dioxide Level 26 20-31 mmol/L Anion Gap 10 5-15 Blood Urea Nitrogen 12 9-23 mg/dL Creatinine 0.65 0.550-1.02 mg/dL Glomerular Filtration Rate Calc 112 >90 mL/min BUN/Creatinine Ratio 18.5 10.0-20.0 Serum Glucose 88 74-106 mg/dL Calcium Level 9.3 8.7-10.4 mg/dL Total Bilirubin 5.3 H 0.2-1.0 mg/dL Direct Bilirubin 0.4 H <0.3 mg/dL Aspartate Amino Transferase (AST) 19 13-40 U/L Alanine Aminotransferase (ALT) 24 7-40 U/L Alkaline Phosphatase 58 46-116 U/L Total Protein 6.9 5.7-8.2 g/dL Albumin 4.5 3.2-4.8 g/dL Urine Color Light-yellow Yellow Urine Clarity Clear Clear Urine pH 7.0 5.0-9.0 Urine Specific Mchenry 1.014 1.001-1.035 Urine Protein Negative Negative Urine Ketones Negative Negative Urine Blood 3+ H Negative /uL Urine Nitrite Negative Negative Urine Bilirubin Negative Negative Urine Urobilinogen Normal Negative mg/dL Urine Leukocyte Esterase Negative Negative /uL Urine RBC 7 0 - 4 /hpf Urine Microscopic WBC 3 0-5 /HPF Urine Squamous Epithelial Cells Few <5 /hpf Urine Bacteria Few H None Seen /hpf Urine Glucose Normal Normal mg/dL SEPSIS Sepsis Screen Date sepsis recognized/suspect: Oct 24, 2025 Time Sepsis recognized/suspect: 1215 Recent Procedure: No On Antibiotic Therapy: No Respiratory Rate >20: No Heart Rate >90: No Temp<36 C (96.8 F) or >38.3 C: No SBP <90 or MAP <65 mmHG: No New Acute Mental Status Change: No Is the patient on CPAP, BIPAP,: No Physician Orders Ct Ab Pel Wo Con-No Oral Or Iv (10/24/25 10:53) Pelvic (10/24/25 12:46) Admit (10/24/25 14:06) Code Status (10/24/25 14:06) Vital Signs .PER UNIT PROTOCOL (10/24/25 14:06) Review Orders With Adm.Md (10/24/25 14:06) Notify Md Of Changes From Base (10/24/25 14:06) Advance Directive (10/24/25 14:06) Patient Condition (10/24/25 14:06) Allergies (10/24/25 14:06) Oxygen By Nasal Cannula (10/24/25 14:06) Stat Ekg For Chest Pain (10/24/25 14:06) Notify Md Of Changes From Base (10/24/25 14:06) Machine Farmworker For 24 Hours (10/24/25 14:06) Emergency Dysrhythmia Protocol (10/24/25 14:06) Rhythm Strips Once Every Shift (10/24/25 14:06) Acetaminophen Tablet (Tylenol Tablet) (10/24/25 14:15) Ketorolac Injection (Toradol Injection) (10/24/25 14:15) Sodium Chloride 0.9% (10/24/25 14:15) Regular Diet (10/24/25 Dinner) Ceftriaxone 1gm/50ml (Rocephin) (10/24/25 14:15) Vital Signs Date Time Temp Pulse Resp B/P (MAP) Pulse Ox O2 Delivery O2 Flow Rate FiO2 10/24/25 12:12 57 16 99 Room Air* 0 21 10/24/25 12:12 57 16 125/69 (87) 99 10/24/25 10:16 97.9 55 16 141/89 99 97.9 Laboratory Tests Test 10/24/25 11:22 White Blood Count 5.5 10^3/uL (4.4-10.8) Medications Medications Dose Ordered Sig/Kamari Route Start Time Stop Time Status Last Admin Dose Admin Ketorolac Tromethamine 30 mg ONCE ONCE IV 10/24/25 11:00 10/24/25 11:01 DC 10/24/25 12:35 30 MG Ondansetron HCl 4 mg ONCE ONCE IV 10/24/25 11:00 10/24/25 11:01 DC 10/24/25 12:35 4 MG Sodium Chloride 1,000 ml @ 1,000 mls/hr Q1H ONCE IVB 10/24/25 11:00 10/24/25 11:59 DC 10/24/25 12:35 1,000 MLS/HR Assessment/Plan Assessment/Plan # Complicated Urinary tract infection Imaging shows bladder wall thickening and symptoms include urinary urgency and chills, making early UTI possible despite menstrual contamination of UA. Starting ceftriaxone, giving IV fluids, and monitoring response # Possible Nephrolithiasis: History consistent with stone disease and UA shows hematuria, though CT did not show obstruction. This may represent passage of small stones. Will continue hydration, and use ketorolac for pain control # Hypokalemia: Likely secondary to decreased intake or renal losses. Will replace potassium and recheck levels; monitor magnesium. # Indirect hyperbilirubinemia Unconjugated bilirubin predominance with normal hemoglobin and normal liver enzymes suggests benign etiology such as Catlett syndrome but LDH is also high, work up for hemolysis ordered # Left ovarian cyst Pelvic ultrasound shows a 3.1-cm simple cyst with preserved flow. No torsion features. Recommend outpatient gynecology follow-up for interval imaging. # Enlarged uterus Seen on CT; could be physiologic or related to fibroids. Gynecology follow-up recommended. Case discussed with Dr Worthy Full code Plan discussed with: Patient, Other (rn) My Orders Orders - JM LECHUGA Procedure Category Date Status Time Admit ADMIT 10/24/25 Transmitted 14:06 Code Status CODE 10/24/25 Transmitted 14:06 Vital Signs [facility] 10/24/25 In Process 14:06 Review Orders With [facility] 10/24/25 In Process Adm. 14:06 Notify Md Of Changes [facility] 10/24/25 In Process From Base 14:06 Advance Directive [facility] 10/24/25 In Process 14:06 Patient Condition ORDERS 10/24/25 Transmitted 14:06 Allergies [facility] 10/24/25 In Process 14:06 Oxygen By Nasal RT 10/24/25 Transmitted Cannula 14:06 Stat Ekg For Chest [facility] 10/24/25 In Process Pain 14:06 Notify Md Of Changes [facility] 10/24/25 In Process From Base 14:06 Machine Farmworker For [facility] 10/24/25 In Process 24 Hours 14:06 Emergency Dysrhythmia [facility] 10/24/25 In Process Protocol 14:06 Rhythm Strips Once [facility] 10/24/25 In Process Every Shift 14:06 Acetaminophen Tablet [facility] 10/24/25 In Process (Tylenol Tablet) 14:15 Ketorolac Injection [facility] 10/24/25 In Process (Toradol Injection) 14:15 Sodium Chloride 0.9% [facility] 10/24/25 In Process 14:15 Regular Diet DIET 10/24/25 Transmitted Dinner Ceftriaxone 1gm/50ml PHA 10/24/25 In Process (Rocephin) 14:15 Date of Service: Oct 24, 2025 Billing Provider: CYDNEY WORTHY MD Common Visit Codes: 68504-RUSXIVE INP/OBS CARE (HIGH) JM LECHUGA Oct 24, 2025 14:46
[2025-10-24] MEDS: SODIUM CHLORIDE 0.9% 1,000 ML IV ONE (16:33)
[2025-10-24] MEDS: POTASSIUM CHL 20 Meq TABLET PO ONE (16:34)
[2025-10-24 16:40] LABS: Wright Stain Ready for Review
[2025-10-24 16:46] LABS: INR 1.01 (0.9-1.15); Partial Thromboplastin Time 25.8 SEC (24.5-34.5); Prothrombin Time 10.7 sec (9.3-11.8)
[2025-10-24 21:30] LABS: Amphetamine Screen, Urine Neg (NEGATIVE); Barbiturate Scree,Urine Neg (NEGATIVE); Benzodiazephine Screen, Urine Neg (NEGATIVE); Cannabinoid Screen, Urine Pos (NEGATIVE); Cocaine Screen, Urine Neg (NEGATIVE); Opiate Scree,Urine Neg (NEGATIVE); Phencyclidine Screen, Urine Neg (NEGATIVE)
[2025-10-24] MEDS: KETOROLAC TROMETH 30 MG/ML 1ML VIAL IV PRN (21:35)
[2025-10-24 22:57] VITALS: BP 110/65; PULSE 60; RESP 18; TEMP 97.9; O2SAT 99
[2025-10-25 01:00] VITALS: BP 94/55; PULSE 71; RESP 19; TEMP 98; O2SAT 96
[2025-10-25 02:32] LABS: Hematocrit 38.4 % (36.0-46.0); Hemoglobin 13.1 g/dL (12.2-16.2); Mean Corpuscular Hemoglobin 33.3 pg (28.0-32.0); Mean Corpuscular Volume 97.6 fL (80.0-100.0); Nucleated Red Blood Cells % 0.1 %
[2025-10-25] MEDS: ACETAMINOPHEN 325 MG TAB PO PRN (02:33)
[2025-10-25 02:52] LABS: Alanine Aminotransferase 19 U/L (7-40); Albumin 3.6 g/dL (3.2-4.8); Alkaline Phosphatase 49 U/L (46-116); Anion Gap 9 (5-15); BUN/Creatinine Ratio 16.7 (10.0-20.0); Carbon Dioxide 24 mmol/L (20-31); Glucose 86 mg/dL (74-106); Potassium 3.6 mmol/L (3.5-5.1); Sodium 143 mmol/L (136-145)
[2025-10-25 03:13] LABS: Blood Urea Nitrogen 9 mg/dL (9-23); Chloride 110 mmol/L (98-107)
[2025-10-25 03:14] LABS: Bilirubin, Total 4.3 mg/dL (0.2-1.0); Calcium 8.2 mg/dL (8.7-10.4); Total Protein 5.6 g/dL (5.7-8.2)
[2025-10-25 05:00] VITALS: BP 102/59; PULSE 68; RESP 19; TEMP 98; O2SAT 98
[2025-10-25 08:53] VITALS: BP 113/80; PULSE 62; RESP 16; TEMP 98.4; O2SAT 96
[2025-10-25 11:17] LABS: Hepatitis B Surface Antigen Negative (Negative); Hepatitis C Antibody Negative (Negative)
[2025-10-25] MEDS: ONDANSETRON HCL 4 MG/2 ML VIAL IV PRN (12:16)
[2025-10-25 12:37] VITALS: BP 111/67; PULSE 52; RESP 15; TEMP 98.1; O2SAT 100
--- NOTE | 2025-10-25 15:11 | DVH ---
CLINICAL HISTORY: R/o nepholithiasis TECHNIQUE: Complete ultrasound exam of the kidneys and bladder was performed. COMPARISON: None FINDINGS: The right kidney has normal echogenicity and measures 9.1 cm. There is no focal parenchymal abnormality or evidence for stone. There is no hydronephrosis. The left kidney has normal echogenicity and measures 10.6 cm. There is no focal parenchymal abnormality or evidence for stone. There is no hydronephrosis. The bladder is grossly unremarkable. IMPRESSION: NO SIGNIFICANT SONOGRAPHIC ABNORMALITY OF THE KIDNEYS.
[2025-10-25 16:30] VITALS: BP 118/78; PULSE 52; RESP 18; TEMP 98.6; O2SAT 99
--- NOTE | 2025-10-25 19:16 | DVHPNRES ---
Progress Note Date Seen: Oct 25, 2025 Resident Creating Document: OMAR GRESHAM Medical Necessity Reason Pt with a Central, PICC or Fol: No Subjective Review of Systems This is a 45-year-old female with a past medical history of recurrent nephrolithiasis who presents with bilateral flank pain. The patient reports aching pain rated 8/10 that began two weeks ago and has worsened over the past three days. The pain is located in both flanks, is constant, and radiates to the lower abdomen. It is associated with diarrhea, nausea, and vomiting after eating. The patient also notes yellowing of both eyes that started one week ago and reports a loss of appetite. She denies dysuria but reports a sensation of incomplete bladder emptying. She is currently menstruating. CT abdomen/pelvis reveals mild bladder wall thickening, possibly due to underdistention versus early cystitis, and an enlarged uterus with a 3.1-cm left adnexal cyst. Pelvic ultrasound confirms a 3.1-cm left ovarian cyst with preserved blood flow and identifies a small pelvic calcification. Past surgical history: Patient states that she underwent a procedure for possible cervical cancer in February 2025. She reports that the doctor accessed the surgical site through her belly button, and she now has a small scar. The procedure was performed at [facility]. Home medications: Baclofen, hydrocodoneacetaminophen, and hydroxyzine Social & Personal history: Smoke: >5 years. 1 pack a day. Alcohol: Occasionally Drugs: Marijuana Lives In: Home Allergies: None Patient seen and examined at bedside. Patient is alert and oriented to time, place person and responding to all questions. Eyes: No Pain, No Vision change, No Conjunctivae inflammation, No Eyelid inflammation, No Other, No Redness ENT: No Ear pain, No Ear discharge, No Nose pain, No Nose discharge, No Nose congestion, No Mouth pain, No Mouth swelling, No Throat pain, No Throat swelling, No Other Cardiovascular: No Chest Pain, No Palpitations, No Orthopnea, No Paroxysmal No Dyspnea, No Edema, No Lt Headedness, No Other Respiratory: No Cough, No Dry, No Shortness of breath, No SOB with exertion, No Wheezing, No Hemoptysis, No Pleuritic Pain, No Sputum, No Other Gastrointestinal: Nausea, Vomiting, Abdominal Pain, Diarrhea, No Constipation, No Melena, No Hematochezia, No Other Genitourinary: No Dysuria, No Frequency, No Incontinence, No Hematuria, No Retention, No Other Musculoskeletal: No other, No neck pain, No shoulder pain, No arm pain, back pain, flank pain, No hand pain, No leg pain, No foot pain Skin: No Rash, No Lesions, No Jaundice, No Bruising, No Other Objective vital signs Vital Sign Date Time Temp Pulse Resp B/P (MAP) Pulse Ox O2 Delivery O2 Flow Rate FiO2 10/25/25 16:30 98.6 52 18 118/78 (91) 99 98.6 10/25/25 08:00 Room Air* 0 21 Total Intake and Output 10/24/25 10/24/25 10/25/25 15:00 23:00 07:00 Intake Total 1000 ml 150 ml 0 ml Balance 1000 ml 150 ml 0 ml medications Current Medications Medications Dose Ordered Sig/Kamari Route Start Time Stop Time Status Last Admin Dose Admin Acetaminophen 650 mg Q4HP PRN PO 10/24/25 14:15 10/25/25 02:33 650 MG Ketorolac Tromethamine 15 mg Q6HPRN PRN IV 10/24/25 14:15 10/29/25 14:14 10/25/25 09:17 15 MG Ceftriaxone Sodium 50 ml @ 100 mls/hr DAILY@09 IV 10/24/25 14:15 10/25/25 08:54 100 MLS/HR Ondansetron HCl 4 mg Q4HPRN PRN IV 10/25/25 10:45 10/25/25 12:16 4 MG Examination General Appearance: Cooperative. Well developed. Well nourished, icteric Head Exam: Normal inspection Neck Exam: Normal inspection. Non-tender. Normal alignment Pulmonary/Respiratory: Chest non-tender. Clear bilateral breath sounds, no crackles, no wheezing. Cardiovascular/Chest: Regular rate and rhythm. No murmurs. No JVD. Peripheral Pulses: 2+ Radial (R). 2+ Radial (L). 2+ Pedal (R). 2+ Pedal (L) Abdominal Exam: Mild bilateral CVA tenderness. Normal bowel sounds. Soft. normal abdomen, no visible veins, Nontender. No hepatospenomegaly. surgical scar is present at the umbilicus. Ankle Exam: Negative ankle edema Lower extremities: Negative lower extremity edema Neuro/Mental Status: A&O x4. Coherent. Thoughts/Psych: Normal thought pattern. Appropriate mood and affect. Good judgement and insight Skin Exam: Normal inspection. Normal color. Warm. Dry laboratory and microbiology Laboratory Tests 10/25/25 02:19 Test 10/25/25 02:19 Range/Units Serum Glucose 86 74-106 mg/dL Labs and/or images reviewed: Labs reviewed by me, Image(s) reviewed by me Problem List/Assessment/Plan Problem List/Assessment/Plan # Left ovarian cyst # Enlarged uterus # Ruled out urinary tract infection # History of nephrolithiasis UA shows hematuria Renal US: no significant sonographic abnormality of the kidneys. Pelvis US: Hyperechoic shadowing structure in the posterior cul-de-sac measuring 1.4 x 1.3 x 0.8 cm. This correlates to calcification seen in the pelvis on CT dated 10/24/2025. Abdomen/Pelvis CT: Mild wall thickening of the urinary bladder measuring up to 3 mm could be related to underdistention. Cystitis is not excluded. Enlarged uterus with a left adnexal cystic mass measuring 3.1 cm. pain management with Tylenol and Toradol Ceftriaxone IV daily Zofran 4 MG IV q4h prn #possible Gastroenteritis #Rule out C. difficile Clostridium difficile toxin Stool Bacterial Culture Stool WBC #Ruled out rhabdomyolysis Creatine Kinase 33 # Isolated unconjugated hyperbilirubinemia Direct Herberth test Haptoglobin Reticulocyte count Walils stain slide Folate normal hemoglobin normal liver enzymes #Marijuana use disorder UDS positive marijuana I have counseled the patient on the importance of complete marijuana cessation for over 50 minutes. Diet: Clear liquid Goals of care: Full code Plan discussed with patient Plan discussed with Dr. Worthy Plan discussed with: Patient, Other (RN) My Orders My Orders Orders - OMAR GRESHAM RESIDENT Procedure Category Date Status Time Ondansetron Hcl PHA 10/25/25 In Process (Zofran) 10:45 Visit Coding STANDARD RES Billing Provider: CYDNEY WORTHY MD Date of Service if different f: Oct 25, 2025 Common Visit Codes: [id number] INP/OBS CARE(HIGH) OMAR GRESHAM RESIDENT Oct 25, 2025 19:16 XAVIER MATIAS RESIDENT Oct 25, 2025 21:21
[2025-10-25 21:00] VITALS: BP 136/82; PULSE 53; RESP 18; TEMP 98; O2SAT 100
[2025-10-25 23:08] LABS: Wright Stain Ready for Review
--- NOTE | 2025-10-25 23:13 | DVH ---
CLINICAL HISTORY: Isolated unconjugated hyperbillirubinemia TECHNIQUE: Transabdominal sonogram was performed of the right upper quadrant. COMPARISON: None FINDINGS: The liver is normal in echogenicity. There is no focal parenchymal abnormality. No intrahepatic biliary ductal dilatation is present. The liver measures 13.6 cm. The gallbladder is normal with no evidence for stones or wall thickening. The common bile duct is normal in caliber, measuring 5 mm. The visualized pancreas is grossly unremarkable. The right kidney is normal in echogenicity and measures 9.9 cm in length. There is no evidence for hydronephrosis or calculi. IMPRESSION: NO SIGNIFICANT SONOGRAPHIC ABNORMALITY OF THE IMAGED RIGHT UPPER QUADRANT.
[2025-10-26 05:00] VITALS: BP 94/54; PULSE 67; RESP 17; TEMP 98.1; O2SAT 98
[2025-10-26 06:18] LABS: Hematocrit 40.5 % (36.0-46.0); Hemoglobin 14.0 g/dL (12.2-16.2); Mean Corpuscular Hemoglobin 33.1 pg (28.0-32.0); Mean Corpuscular Volume 95.8 fL (80.0-100.0); Nucleated Red Blood Cells % 0.1 %
[2025-10-26 06:24] LABS: Alanine Aminotransferase 14 U/L (7-40); Albumin 3.8 g/dL (3.2-4.8); Alkaline Phosphatase 51 U/L (46-116); Anion Gap 10 (5-15); BUN/Creatinine Ratio 8.0 (10.0-20.0); Calcium 8.7 mg/dL (8.7-10.4); Carbon Dioxide 25 mmol/L (20-31); Glucose 93 mg/dL (74-106); Potassium 3.7 mmol/L (3.5-5.1); Sodium 143 mmol/L (136-145); Total Protein 5.9 g/dL (5.7-8.2)
[2025-10-26 06:35] LABS: Bilirubin, Total 4.5 mg/dL (0.2-1.0); Blood Urea Nitrogen 6 mg/dL (9-23); Chloride 108 mmol/L (98-107)
[2025-10-26 09:00] VITALS: BP 104/53; PULSE 54; RESP 19; TEMP 98.3; O2SAT 99
[2025-10-26] MEDS: SODIUM CHLOR 0.9% PF (SALINE LOCK) 10ML VIAL/SYR IV SCH (12:15)
--- NOTE | 2025-10-26 12:16 | DVH ---
PROCEDURE: MRI MRCP MRI Indication: high bilirubin COMPARISON: 10/24/2025 TECHNIQUE: Multiplanar multisequence images of the brain are obtained. FINDINGS: Kidneys demonstrate no hydronephrosis. Spleen unremarkable. No evidence for cholelithiasis. No evidence for choledocholithiasis. CBD normal in caliber measuring 4 mm. Pancreas unremarkable. Pancreatic duct measures 2 mm in diameter. No T2 hyperintense lesions within the liver. Stomach partially distended. Imaged small bowel loops normal in caliber. 1.9 left ovarian/adnexal cystic appearing lesion. IMPRESSION: No evidence for cholelithiasis/ choledocholithiasis. Normal caliber common bile duct, pancreatic duct. 1.9 cm left ovarian/ adnexal cystic lesion
[2025-10-26 13:00] VITALS: BP 123/78; PULSE 85; RESP 19; TEMP 98; O2SAT 100
--- NOTE | 2025-10-26 13:02 | DVHPNRES ---
Progress Note Date Seen: Oct 26, 2025 Resident Creating Document: OMAR GRESHAM Medical Necessity Reason Pt with a Central, PICC or Fol: No Subjective Review of Systems This is a 45-year-old female with a past medical history of recurrent nephrolithiasis who presents with bilateral flank pain. The patient reports aching pain rated 8/10 that began two weeks ago and has worsened over the past three days. The pain is located in both flanks, is constant, and radiates to the lower abdomen. It is associated with diarrhea, nausea, and vomiting after eating. The patient also notes yellowing of both eyes that started one week ago and reports a loss of appetite. She denies dysuria but reports a sensation of incomplete bladder emptying. She is currently menstruating. CT abdomen/pelvis reveals mild bladder wall thickening, possibly due to underdistention versus early cystitis, and an enlarged uterus with a 3.1-cm left adnexal cyst. Pelvic ultrasound confirms a 3.1-cm left ovarian cyst with preserved blood flow and identifies a small pelvic calcification. On 10/26/25, Today, the patient reports persistent left lower quadrant pain and left flank dull pain rated 8/10. The patients last menstrual period started on 10/23. MRCP shows no evidence for cholelithiasis/ choledocholithiasis. Normal caliber common bile duct, pancreatic duct. 1.9 cm left ovarian/ adnexal cystic lesion. The patients diet was advanced to a mechanical soft diet. Care is ongoing. Past surgical history: Patient states that she underwent a procedure for possible cervical cancer in February 2025. She reports that the doctor accessed the surgical site through her belly button, and she now has a small scar. The procedure was performed at [facility]. Home medications: Baclofen, hydrocodoneacetaminophen, and hydroxyzine Social & Personal history: Smoke: >5 years. 1 pack a day. Alcohol: Occasionally Drugs: Marijuana Lives In: Home Allergies: None Patient seen and examined at bedside. Patient is alert and oriented to time, place person and responding to all questions. Eyes: No Pain, No Vision change, No Conjunctivae inflammation, No Eyelid inflammation, No Other, No Redness ENT: No Ear pain, No Ear discharge, No Nose pain, No Nose discharge, No Nose congestion, No Mouth pain, No Mouth swelling, No Throat pain, No Throat swelling, No Other Cardiovascular: No Chest Pain, No Palpitations, No Orthopnea, No Paroxysmal No Dyspnea, No Edema, No Lt Headedness, No Other Respiratory: No Cough, No Dry, No Shortness of breath, No SOB with exertion, No Wheezing, No Hemoptysis, No Pleuritic Pain, No Sputum, No Other Gastrointestinal: Nausea, Vomiting, Abdominal Pain, Diarrhea, No Constipation, No Melena, No Hematochezia, No Other Genitourinary: No Dysuria, No Frequency, No Incontinence, No Hematuria, No Retention, No Other Musculoskeletal: No other, No neck pain, No shoulder pain, No arm pain, back pain, flank pain, No hand pain, No leg pain, No foot pain Skin: No Rash, No Lesions, No Jaundice, No Bruising, No Other Objective vital signs Vital Sign Date Time Temp Pulse Resp B/P (MAP) Pulse Ox O2 Delivery O2 Flow Rate FiO2 10/26/25 09:00 98.3 54 19 104/53 (70) 99 98.3 10/26/25 07:46 Room Air* 0 21 Total Intake and Output 10/25/25 10/25/25 10/26/25 15:00 23:00 07:00 Intake Total 240 ml 170 ml Balance 240 ml 170 ml medications Current Medications Medications Dose Ordered Sig/Kamrai Route Start Time Stop Time Status Last Admin Dose Admin Acetaminophen 650 mg Q4HP PRN PO 10/24/25 14:15 10/25/25 02:33 650 MG Ketorolac Tromethamine 15 mg Q6HPRN PRN IV 10/24/25 14:15 10/29/25 14:14 10/25/25 20:12 15 MG Ceftriaxone Sodium 50 ml @ 100 mls/hr DAILY@09 IV 10/24/25 14:15 10/26/25 09:02 100 MLS/HR Ondansetron HCl 4 mg Q4HPRN PRN IV 10/25/25 10:45 10/25/25 20:12 4 MG Sodium Chloride 10 ml Q8HR IV 10/26/25 12:15 Examination General Appearance: Cooperative. Well developed. Well nourished, icteric Head Exam: Normal inspection Neck Exam: Normal inspection. Non-tender. Normal alignment Pulmonary/Respiratory: Chest non-tender. Clear bilateral breath sounds, no crackles, no wheezing. Cardiovascular/Chest: Regular rate and rhythm. No murmurs. No JVD. Peripheral Pulses: 2+ Radial (R). 2+ Radial (L). 2+ Pedal (R). 2+ Pedal (L) Abdominal Exam: LLQ tenderness. Mild bilateral CVA tenderness. Normal bowel sounds. Soft. normal abdomen, no visible veins, Nontender. No hepatospenomegaly. surgical scar is present at the umbilicus. Ankle Exam: Negative ankle edema Lower extremities: Negative lower extremity edema Neuro/Mental Status: A&O x4. Coherent. Thoughts/Psych: Normal thought pattern. Appropriate mood and affect. Good judgement and insight Skin Exam: Normal inspection. Normal color. Warm. Dry laboratory and microbiology Laboratory Tests 10/26/25 05:19 Test 10/26/25 05:19 Range/Units Serum Glucose 93 74-106 mg/dL Labs and/or images reviewed: Labs reviewed by me, Image(s) reviewed by me Problem List/Assessment/Plan Problem List/Assessment/Plan #Left ovarian cyst #Enlarged uterus #Ruled out urinary tract infection #History of nephrolithiasis #Ruled out cholelithiasis / choledocholithiasis MRCP: No evidence for cholelithiasis/ choledocholithiasis. Normal caliber common bile duct, pancreatic duct. 1.9 cm left ovarian/ adnexal cystic lesion Liver US: Significant sonographic abnormality of the imaged right upper quadrant. UA shows hematuria Renal US: no significant sonographic abnormality of the kidneys. Pelvis US: Hyperechoic shadowing structure in the posterior cul-de-sac measuring 1.4 x 1.3 x 0.8 cm. This correlates to calcification seen in the pelvis on CT dated 10/24/2025. Abdomen/Pelvis CT: Mild wall thickening of the urinary bladder measuring up to 3 mm could be related to underdistention. Cystitis is not excluded. Enlarged uterus with a left adnexal cystic mass measuring 3.1 cm. pain management with Tylenol and Toradol Ceftriaxone IV daily Zofran 4 MG IV q4h prn Urine bacterial culture Sodium chloride 10 ML IV q8h #possible Gastroenteritis #Rule out C. difficile Clostridium difficile toxin Stool Bacterial Culture Stool WBC #Ruled out rhabdomyolysis Creatine Kinase 33 #Isolated unconjugated hyperbilirubinemia GI consult AFP EVA CA 126 CEA Direct Herberth test negative Haptoglobin negative Reticulocyte count negative Wallis stain slide Folate normal hemoglobin normal liver enzymes #Marijuana use disorder UDS positive marijuana I have counseled the patient on the importance of complete marijuana cessation for over 50 minutes. Diet: Mechanical Soft Goals of care: Full code Plan discussed with patient Plan discussed with Dr. Worthy Plan discussed with: Patient, Other (RN) My Orders My Orders Orders - OMAR GRESHAM Procedure Category Date Status Time * Gi Dvh Dairy Inspector CONS 10/26/25 Transmitted 10:04 Afp Tumor Marker LAB 10/26/25 In Process (Serial) 10:06 Eva; Comprehensive LAB 10/26/25 In Process Panel 10:06 Ca 125 (Serial) LAB 10/26/25 In Process 10:07 Carbohydrate Antigen LAB 10/26/25 In Process 19-9 Mechanical Soft Diet DIET 10/26/25 Transmitted Lunch Sodium Chloride Lock PHA 10/26/25 In Process (Saline Lock Ns) 12:15 Visit Coding STANDARD RES Billing Provider: CYDNEY WORTHY MD Date of Service if different f: Oct 26, 2025 Common Visit Codes: [id number] INP/OBS CARE(HIGH) OMAR GRESHAM RESIDENT Oct 26, 2025 13:02
[2025-10-26 17:00] VITALS: BP 120/60; PULSE 62; RESP 18; TEMP 98.1; O2SAT 99
[2025-10-26 20:55] VITALS: BP 98/61; PULSE 57; RESP 18; TEMP 98.2; O2SAT 97
[2025-10-27 00:51] VITALS: BP 101/64; PULSE 70; RESP 18; TEMP 98.6; O2SAT 96
[2025-10-27 05:00] VITALS: BP 112/57; PULSE 76; RESP 18; TEMP 98.8; O2SAT 99
[2025-10-27 06:32] LABS: Hematocrit 46.2 % (36.0-46.0); Hemoglobin 15.9 g/dL (12.2-16.2); Mean Corpuscular Hemoglobin 33.0 pg (28.0-32.0); Mean Corpuscular Volume 95.9 fL (80.0-100.0); Nucleated Red Blood Cells % 0.3 %
[2025-10-27 06:53] LABS: Alanine Aminotransferase 17 U/L (7-40); Albumin 4.3 g/dL (3.2-4.8); Alkaline Phosphatase 58 U/L (46-116); Anion Gap 12 (5-15); BUN/Creatinine Ratio 11.0 (10.0-20.0); Calcium 9.3 mg/dL (8.7-10.4); Carbon Dioxide 24 mmol/L (20-31); Chloride 106 mmol/L (98-107); Glucose 96 mg/dL (74-106); Potassium 3.8 mmol/L (3.5-5.1); Sodium 142 mmol/L (136-145); Total Protein 6.6 g/dL (5.7-8.2)
[2025-10-27 07:08] LABS: Bilirubin, Total 5.1 mg/dL (0.2-1.0); Blood Urea Nitrogen 8 mg/dL (9-23)
[2025-10-27 09:00] VITALS: BP 116/53; PULSE 68; RESP 17; TEMP 98.3; O2SAT 91
[2025-10-27 11:08] LABS: Anti-Centromere B Antibody <0.2 AI (0.0-0.9); Anti-Jo-1 Antibody <0.2 AI (0.0-0.9); Anti-dsDNA Antibody 7 IU/mL (0-9); Antichromatin Antibody <0.2 AI (0.0-0.9); Antiscleroderma-70 Antibody <0.2 AI (0.0-0.9); Sjogren's Anti-SS-A Antibody <0.2 AI (0.0-0.9); Sjogren's Anti-SS-B Antibody <0.2 AI (0.0-0.9)
[2025-10-27 13:00] VITALS: BP 128/70; PULSE 63; RESP 19; TEMP 98; O2SAT 98
--- NOTE | 2025-10-27 13:53 | DVHPNRES ---
Progress Note Date Seen: Oct 27, 2025 Resident Creating Document: OMAR GRESHAM Medical Necessity Reason Pt with a Central, PICC or Fol: No Subjective Review of Systems This is a 45-year-old female with a past medical history of recurrent nephrolithiasis who presents with bilateral flank pain. The patient reports aching pain rated 8/10 that began two weeks ago and has worsened over the past three days. The pain is located in both flanks, is constant, and radiates to the lower abdomen. It is associated with diarrhea, nausea, and vomiting after eating. The patient also notes yellowing of both eyes that started one week ago and reports a loss of appetite. She denies dysuria but reports a sensation of incomplete bladder emptying. She is currently menstruating. CT abdomen/pelvis reveals mild bladder wall thickening, possibly due to underdistention versus early cystitis, and an enlarged uterus with a 3.1-cm left adnexal cyst. Pelvic ultrasound confirms a 3.1-cm left ovarian cyst with preserved blood flow and identifies a small pelvic calcification. On 10/26/25, Today, the patient reports persistent left lower quadrant pain and left flank dull pain rated 8/10. The patients last menstrual period started on 10/23. MRCP shows no evidence for cholelithiasis/ choledocholithiasis. Normal caliber common bile duct, pancreatic duct. 1.9 cm left ovarian/ adnexal cystic lesion. The patients diet was advanced to a mechanical soft diet. Care is ongoing. On 10/27/25, patient reports improvement in her symptoms, LLQ pain rated 3/10. The patient is suspected to have Gilbert syndrome, likely presenting as isolated unconjugated hyperbilirubinemia. Gastroenterology was consulted and recommended fasting for 24 hours followed by repeat bilirubin testing to confirm the diagnosis. Past surgical history: Patient states that she underwent a procedure for possible cervical cancer in February 2025. She reports that the doctor accessed the surgical site through her belly button, and she now has a small scar. The procedure was performed at [facility]. Home medications: Baclofen, hydrocodoneacetaminophen, and hydroxyzine Social & Personal history: Smoke: >5 years. 1 pack a day. Alcohol: Occasionally Drugs: Marijuana Lives In: Home Allergies: None Patient seen and examined at bedside. Patient is alert and oriented to time, place person and responding to all questions. Eyes: No Pain, No Vision change, No Conjunctivae inflammation, No Eyelid inflammation, No Other, No Redness ENT: No Ear pain, No Ear discharge, No Nose pain, No Nose discharge, No Nose congestion, No Mouth pain, No Mouth swelling, No Throat pain, No Throat swelling, No Other Cardiovascular: No Chest Pain, No Palpitations, No Orthopnea, No Paroxysmal No Dyspnea, No Edema, No Lt Headedness, No Other Respiratory: No Cough, No Dry, No Shortness of breath, No SOB with exertion, No Wheezing, No Hemoptysis, No Pleuritic Pain, No Sputum, No Other Gastrointestinal: Nausea, Vomiting, Abdominal Pain, Diarrhea, No Constipation, No Melena, No Hematochezia, No Other Genitourinary: No Dysuria, No Frequency, No Incontinence, No Hematuria, No Retention, No Other Musculoskeletal: No other, No neck pain, No shoulder pain, No arm pain, back pain, flank pain, No hand pain, No leg pain, No foot pain Skin: No Rash, No Lesions, No Jaundice, No Bruising, No Other Objective vital signs Vital Sign Date Time Temp Pulse Resp B/P (MAP) Pulse Ox O2 Delivery O2 Flow Rate FiO2 10/27/25 13:00 98.0 63 19 128/70 (89) 98 98.0 10/27/25 08:00 Room Air* 0 21 Total Intake and Output 10/26/25 10/26/25 10/27/25 15:00 23:00 07:00 Intake Total 50 ml 620 ml 400 ml Balance 50 ml 620 ml 400 ml medications Current Medications Medications Dose Ordered Sig/Kamari Route Start Time Stop Time Status Last Admin Dose Admin Acetaminophen 650 mg Q4HP PRN PO 10/24/25 14:15 10/25/25 02:33 650 MG Ketorolac Tromethamine 15 mg Q6HPRN PRN IV 10/24/25 14:15 10/29/25 14:14 10/27/25 04:40 15 MG Ceftriaxone Sodium 50 ml @ 100 mls/hr DAILY@09 IV 10/24/25 14:15 10/27/25 09:00 100 MLS/HR Ondansetron HCl 4 mg Q4HPRN PRN IV 10/25/25 10:45 10/25/25 20:12 4 MG Sodium Chloride 10 ml Q8HR IV 10/26/25 12:15 10/27/25 05:26 10 ML Examination General Appearance: Cooperative. Well developed. Well nourished, icteric Head Exam: Normal inspection Neck Exam: Normal inspection. Non-tender. Normal alignment Pulmonary/Respiratory: Chest non-tender. Clear bilateral breath sounds, no crackles, no wheezing. Cardiovascular/Chest: Regular rate and rhythm. No murmurs. No JVD. Peripheral Pulses: 2+ Radial (R). 2+ Radial (L). 2+ Pedal (R). 2+ Pedal (L) Abdominal Exam: LLQ tenderness. Mild bilateral CVA tenderness. Normal bowel sounds. Soft. normal abdomen, no visible veins, Nontender. No hepatospenomegaly. surgical scar is present at the umbilicus. Ankle Exam: Negative ankle edema Lower extremities: Negative lower extremity edema Neuro/Mental Status: A&O x4. Coherent. Thoughts/Psych: Normal thought pattern. Appropriate mood and affect. Good judgement and insight Skin Exam: Normal inspection. Normal color. Warm. Dry laboratory and microbiology Laboratory Tests 10/27/25 05:14 Test 10/27/25 05:14 Range/Units Serum Glucose 96 74-106 mg/dL Labs and/or images reviewed: Labs reviewed by me, Image(s) reviewed by me Problem List/Assessment/Plan Problem List/Assessment/Plan #Probable urinary tract infection #Left ovarian cyst #Enlarged uterus #History of nephrolithiasis #Ruled out cholelithiasis / choledocholithiasis MRCP: No evidence for cholelithiasis/ choledocholithiasis. Normal caliber common bile duct, pancreatic duct. 1.9 cm left ovarian/ adnexal cystic lesion Liver US: Significant sonographic abnormality of the imaged right upper quadrant. UA shows hematuria Renal US: no significant sonographic abnormality of the kidneys. Pelvis US: Hyperechoic shadowing structure in the posterior cul-de-sac measuring 1.4 x 1.3 x 0.8 cm. This correlates to calcification seen in the pelvis on CT dated 10/24/2025. Abdomen/Pelvis CT: Mild wall thickening of the urinary bladder measuring up to 3 mm could be related to underdistention. Cystitis is not excluded. Enlarged uterus with a left adnexal cystic mass measuring 3.1 cm. pain management with Tylenol and Toradol Ceftriaxone IV daily Zofran 4 MG IV q4h prn Urine bacterial culture Sodium chloride 10 ML IV q8h #Possible Gastroenteritis #Rule out C. difficile Clostridium difficile toxin negative Stool Bacterial Culture negative Stool WBC negative #Ruled out rhabdomyolysis Creatine Kinase 33 #Gilbert syndrome, likely #Isolated unconjugated hyperbilirubinemia GI consult: fasting for 24 hours and check bilirubin AFP negative AMA negative CA 125 negative CEA negative Direct Herberth test negative Haptoglobin negative Reticulocyte count negative Wallis stain slide Folate normal hemoglobin normal liver enzymes #Marijuana use disorder UDS positive marijuana I have counseled the patient on the importance of complete marijuana cessation for over 50 minutes. Diet: NPO Goals of care: Full code Plan discussed with patient Plan discussed with Dr. Worthy Plan discussed with: Patient, Other (RN) My Orders My Orders Orders - OMAR GRESHAM RESIDENT Procedure Category Date Status Time Routine Care: Central ORDERS 10/27/25 Transmitted Line 12:35 Npo (Nothing By DIET 10/27/25 Transmitted Mouth) Diet Lunch Visit Coding STANDARD RES Billing Provider: CYDNEY WORTHY MD Date of Service if different f: Oct 27, 2025 Common Visit Codes: [id number] INP/OBS CARE(HIGH) OMAR GRESHAM RESIDENT Oct 27, 2025 13:53 XAVIER MATIAS RESIDENT Oct 27, 2025 19:22
--- NOTE | 2025-10-27 14:24 | DVHINCON2 ---
GI Consult Consult Note GI consult note Date of Consultation: 10/27/2025 Chief Complaint: Isolated unconjugated hyperbilirubinemia Referring Physician: Dr. Quintero H&P: 45-year-old female past medical history of recurrent nephrolithiasis admitted with complains of bilateral flank pain that is radiating to her lower abdomen and chills. Patient denies dysuria no hematuria. Patient has nausea and vomiting treated with Zofran at home. Patient also admits to having poor appetite and uses cannabinoids gummies which improves her appetite. Admits to having about 10 lb weight loss in the past four weeks. Patient has issues with poor appetite for many years but seems to be getting worse for the past one year. Patient also complains of occasional diarrheal symptoms none at this time. No melena or red blood in stool. No EGD or colonoscopy in past. Patient denies alcohol use. Denies excessive use of Tylenol. Past Medical History: Kidney stone Past Surgical History: Social History: NO smoking, drinking ETOH Positive marijuana Family History: Noncontributory Review of Systems: Constitutional: no fever, chill, weight loss HEENT: no eye pain, no hearing loss, no oral lesion, no scleral icterus Heart: no chest pain, no chest pressure Lung: no cough, no dyspnea with exertion Abdomen: see HPI Physical exam: General: NAD, AAOX3 Chest: lung camejo clear to auscultation Heart: RRR, no murmur Abdomen: non-distended, no tenderness to palpation, +BS Labs: Labs Test 10/27/25 05:14 10/27/25 04:50 10/26/25 10:34 10/25/25 21:36 Range/Units White Blood Count 5.6 4.4-10.8 10^3/uL Red Blood Count 4.82 4.0-5.20 10^6/uL Hemoglobin 15.9 12.2-16.2 g/dL Hematocrit 46.2 #H 36.0-46.0 % Mean Corpuscular Volume 95.9 80.0-100.0 fL Mean Corpuscular Hemoglobin 33.0 H 28.0-32.0 pg Mean Corpuscular Hemoglobin Concent 34.4 32.0-36.0 g/dL Red Cell Distribution Width 12.9 11.8-14.3 % Platelet Count 202 140-450 10^3/uL Mean Platelet Volume 10.2 6.9-10.8 fL Neutrophils (%) (Auto) 55.9 37.0-80.0 % Lymphocytes (%) (Auto) 30.7 10.0-50.0 % Monocytes (%) (Auto) 7.1 0.0-12.0 % Eosinophils (%) (Auto) 5.4 0.0-7.0 % Basophils (%) (Auto) 0.9 0.0-2.0 % Neutrophils # (Auto) 3.1 1.6-8.6 10 ^3/uL Lymphocytes # (Auto) 1.7 0.4-5.4 10 ^3/uL Monocytes # (Auto) 0.4 0-1.3 10 ^3/uL Eosinophils # (Auto) 0.3 0-0.8 10 ^3/uL Basophils # (Auto) 0 0-0.2 10 ^3/uL Nucleated Red Blood Cells 0.3 % Sodium Level 142 136-145 mmol/L Potassium Level 3.8 3.5-5.1 mmol/L Chloride Level 106 98-107 mmol/L Carbon Dioxide Level 24 20-31 mmol/L Anion Gap 12 5-15 Blood Urea Nitrogen 8 L 9-23 mg/dL Creatinine 0.73 0.550-1.02 mg/dL Glomerular Filtration Rate Calc 105 >90 mL/min BUN/Creatinine Ratio 11.0 10.0-20.0 Serum Glucose 96 74-106 mg/dL Calcium Level 9.3 8.7-10.4 mg/dL Total Bilirubin 5.1 H 0.2-1.0 mg/dL Aspartate Amino Transferase (AST) 16 13-40 U/L Alanine Aminotransferase (ALT) 17 7-40 U/L Alkaline Phosphatase 58 46-116 U/L Total Protein 6.6 5.7-8.2 g/dL Albumin 4.3 3.2-4.8 g/dL Stool Occult Blood Negative Negative Stool Occult Blood Sample #2 Negative Stool Occult Blood Sample #3 Negative Stool for White Cells None seen Tumor Marker Alpha Fetoprotein <1.8 0.0-6.4 ng/mL Carcinoembryonic Antigen 1.63 <=5.0 ng/mL CA 19-9 Antigen 14 0-35 U/mL CA 125 Antigen 9.5 0.0-38.1 U/mL Anti-Nuclear Antibody Comment Comment . WILMAN-1 Antibody <0.2 0.0-0.9 AI SS-A/Ro Antibody <0.2 0.0-0.9 AI SS-B/La Antibody <0.2 0.0-0.9 AI Sm Antibody <0.2 0.0-0.9 AI SKILL TRAINING PROGRAM COORDINATOR Antibody <0.2 0.0-0.9 AI Scl-70 (Scleroderma) Antibody <0.2 0.0-0.9 AI Anti-Double Strand DNA Antibody 7 0-9 IU/mL Chromatin Antibody <0.2 0.0-0.9 AI Centromere B Antibody <0.2 0.0-0.9 AI Reticulocyte Count (auto) 1.16 0.5-1.5 % Haptoglobin 121 42-296 mg/dL Folic Acid 13.25 >5.38 ng/mL Acetaminophen Level < 2.0 L 10.0-20.0 UG/ML Plasma/Serum Blood Alcohol < 3.0 <10 mg/dL Test 10/25/25 02:19 10/24/25 16:23 10/24/25 11:22 10/24/25 10:55 Range/Units Creatine Kinase 33 L 34-145 U/L Prothrombin Time 10.7 9.3-11.8 sec Prothrombin Time INR 1.01 0.9-1.15 Activated Partial Thromboplast Time 25.8 24.5-34.5 SEC Magnesium Level 2.1 1.6-2.6 mg/dL Direct Bilirubin 0.4 H <0.3 mg/dL Lactate Dehydrogenase 252 H 120-246 U/L Hepatitis A IgM Antibody Negative Hepatitis B Surface Antigen Negative Negative Hepatitis B Core IgM Antibody Negative Negative Hepatitis C Antibody Negative Negative Urine Color Light-yellow Yellow Urine Clarity Clear Clear Urine pH 7.0 5.0-9.0 Urine Specific [place] 1.014 1.001-1.035 Urine Protein Negative Negative Urine Ketones Negative Negative Urine Blood 3+ H Negative /uL Urine Nitrite Negative Negative Urine Bilirubin Negative Negative Urine Urobilinogen Normal Negative mg/dL Urine Leukocyte Esterase Negative Negative /uL Urine RBC 7 0 - 4 /hpf Urine Microscopic WBC 3 0-5 /HPF Urine Squamous Epithelial Cells Few <5 /hpf Urine Bacteria Few H None Seen /hpf Urine Glucose Normal Normal mg/dL Urine Opiates Screen Neg NEGATIVE Urine Fentanyl Screen Neg NEGATIVE Urine Barbiturates Screen Neg NEGATIVE Urine Phencyclidine Screen Neg NEGATIVE Urine Amphetamines Screen Neg NEGATIVE Urine Benzodiazepines Screen Neg NEGATIVE Urine Cocaine Screen Neg NEGATIVE Urine Cannabinoids Screen Pos NEGATIVE Imaging: CT abdomen pelvis IMPRESSION: 1. Mild wall thickening of the urinary bladder measuring up to 3 mm could be related to underdistention. Cystitis is not excluded. 2. Enlarged uterus with a left adnexal cystic mass measuring 3.1 cm. Recommend further evaluation with pelvic ultrasound. Abdominal ultrasound IMPRESSION: NO SIGNIFICANT SONOGRAPHIC ABNORMALITY OF THE IMAGED RIGHT UPPER QUADRANT. MRCP IMPRESSION: No evidence for cholelithiasis/ choledocholithiasis. Normal caliber common bile duct, pancreatic duct. 1.9 cm left ovarian/ adnexal cystic lesion Assessment: Hyperbilirubinemia possible differential diagnosis of Gilbert syndrome Weight loss Left ovarian cyst History of nephrolithiasis History of diarrhea Plan: Discussed with Dr. Benson Monitor lab in a.m. Stool test pending Discussed extensively proper hydration and dietary intake DC marijuana discussed also Plan discussed with patient, family at bedside and RN We will continue to monitor patient Thank you for this consult Date of Service: Oct 27, 2025 Billing Provider: SERENITY PRADHAN Common Visit Codes: CONSULT ONLY Consultation Codes: [id number] CONSULT <60MIN SERENITY PRADHAN Oct 27, 2025 14:24
[2025-10-27 17:00] VITALS: BP 132/82; PULSE 79; RESP 18; TEMP 98.5; O2SAT 99
[2025-10-27 21:00] VITALS: BP 131/88; PULSE 62; RESP 16; TEMP 97.8; O2SAT 99
[2025-10-28 04:00] VITALS: BP 103/66; PULSE 68; RESP 16; TEMP 97.9; O2SAT 99
[2025-10-28 06:35] LABS: Hematocrit 43.7 % (36.0-46.0); Hemoglobin 15.2 g/dL (12.2-16.2); Mean Corpuscular Hemoglobin 33.0 pg (28.0-32.0); Mean Corpuscular Volume 95.0 fL (80.0-100.0); Nucleated Red Blood Cells % 0.0 %
[2025-10-28 06:51] LABS: Alanine Aminotransferase 14 U/L (7-40); Albumin 4.0 g/dL (3.2-4.8); Alkaline Phosphatase 56 U/L (46-116); Anion Gap 9 (5-15); BUN/Creatinine Ratio 20.5 (10.0-20.0); Blood Urea Nitrogen 15 mg/dL (9-23); Calcium 9.2 mg/dL (8.7-10.4); Carbon Dioxide 26 mmol/L (20-31); Glucose 93 mg/dL (74-106); Potassium 4.2 mmol/L (3.5-5.1); Sodium 143 mmol/L (136-145); Total Protein 6.3 g/dL (5.7-8.2)
[2025-10-28 06:53] LABS: Bilirubin, Total 5.2 mg/dL (0.2-1.0); Chloride 108 mmol/L (98-107)
[2025-10-28 09:00] VITALS: BP 124/79; PULSE 72; RESP 18; TEMP 97.5; O2SAT 100
--- NOTE | 2025-10-28 12:45 | DVHDSRES ---
Discharge Summary Date of Admission Resident Creating Document: MARCIA CHRISTIANSON RESIDENT Oct 24, 2025 at 14:06 Date of Discharge: Oct 28, 2025 Admitting Diagnosis Acute gastroenteritis Labs/Diagnostic Data: Laboratory Results Test 10/28/25 05:37 10/27/25 05:14 10/27/25 04:50 10/26/25 10:34 White Blood Count 6.3 10^3/uL (4.4-10.8) Red Blood Count 4.61 10^6/uL (4.0-5.20) Hemoglobin 15.2 g/dL (12.2-16.2) Hematocrit 43.7 % (36.0-46.0) Mean Corpuscular Volume 95.0 fL (80.0-100.0) Mean Corpuscular Hemoglobin 33.0 pg (28.0-32.0) Mean Corpuscular Hemoglobin Concent 34.7 g/dL (32.0-36.0) Red Cell Distribution Width 13.0 % (11.8-14.3) Platelet Count 208 10^3/uL (140-450) Mean Platelet Volume 10.1 fL (6.9-10.8) Neutrophils (%) (Auto) 63.8 % (37.0-80.0) Lymphocytes (%) (Auto) 24.5 % (10.0-50.0) Monocytes (%) (Auto) 6.4 % (0.0-12.0) Eosinophils (%) (Auto) 4.4 % (0.0-7.0) Basophils (%) (Auto) 0.9 % (0.0-2.0) Neutrophils # (Auto) 4.0 10 ^3/uL (1.6-8.6) Lymphocytes # (Auto) 1.6 10 ^3/uL (0.4-5.4) Monocytes # (Auto) 0.4 10 ^3/uL (0-1.3) Eosinophils # (Auto) 0.3 10 ^3/uL (0-0.8) Basophils # (Auto) 0.1 10 ^3/uL (0-0.2) Nucleated Red Blood Cells 0.0 % Sodium Level 143 mmol/L (136-145) Potassium Level 4.2 mmol/L (3.5-5.1) Chloride Level 108 mmol/L (98-107) Carbon Dioxide Level 26 mmol/L (20-31) Anion Gap 9 (5-15) Blood Urea Nitrogen 15 mg/dL (9-23) Creatinine 0.73 mg/dL (0.550-1.02) Glomerular Filtration Rate Calc 105 mL/min (>90) BUN/Creatinine Ratio 20.5 (10.0-20.0) Serum Glucose 93 mg/dL (74-106) Calcium Level 9.2 mg/dL (8.7-10.4) Total Bilirubin 5.2 mg/dL (0.2-1.0) Aspartate Amino Transferase (AST) 12 U/L (13-40) Alanine Aminotransferase (ALT) 14 U/L (7-40) Alkaline Phosphatase 56 U/L (46-116) Total Protein 6.3 g/dL (5.7-8.2) Albumin 4.0 g/dL (3.2-4.8) Lipase 33 U/L (12-53) Stool Occult Blood Negative (Negative) Stool Occult Blood Sample #2 (Negative) Stool Occult Blood Sample #3 (Negative) Stool for White Cells None seen Tumor Marker Alpha Fetoprotein <1.8 ng/mL (0.0-6.4) Carcinoembryonic Antigen 1.63 ng/mL (<=5.0) CA 19-9 Antigen 14 U/mL (0-35) CA 125 Antigen 9.5 U/mL (0.0-38.1) Anti-Nuclear Antibody Comment Comment (.) WILMAN-1 Antibody <0.2 AI (0.0-0.9) SS-A/Ro Antibody <0.2 AI (0.0-0.9) SS-B/La Antibody <0.2 AI (0.0-0.9) Sm Antibody <0.2 AI (0.0-0.9) FIRE EXTINGUISHER INSTALLER Antibody <0.2 AI (0.0-0.9) Scl-70 (Scleroderma) Antibody <0.2 AI (0.0-0.9) Anti-Double Strand DNA Antibody 7 IU/mL (0-9) Chromatin Antibody <0.2 AI (0.0-0.9) Centromere B Antibody <0.2 AI (0.0-0.9) Test 10/25/25 21:36 10/25/25 02:19 10/24/25 16:23 10/24/25 11:22 Reticulocyte Count (auto) 1.16 % (0.5-1.5) Haptoglobin 121 mg/dL (42-296) Folic Acid 13.25 ng/mL (>5.38) Acetaminophen Level < 2.0 UG/ML (10.0-20.0) Plasma/Serum Blood Alcohol < 3.0 mg/dL (<10) Creatine Kinase 33 U/L (34-145) Prothrombin Time 10.7 sec (9.3-11.8) Prothrombin Time INR 1.01 (0.9-1.15) Activated Partial Thromboplast Time 25.8 SEC (24.5-34.5) Magnesium Level 2.1 mg/dL (1.6-2.6) Direct Bilirubin 0.4 mg/dL (<0.3) Lactate Dehydrogenase 252 U/L (120-246) Hepatitis A IgM Antibody Negative Hepatitis B Surface Antigen Negative (Negative) Hepatitis B Core IgM Antibody Negative (Negative) Hepatitis C Antibody Negative (Negative) Test 10/24/25 10:55 Urine Color Light-yellow (Yellow) Urine Clarity Clear (Clear) Urine pH 7.0 (5.0-9.0) Urine Specific [place] 1.014 (1.001-1.035) Urine Protein Negative (Negative) Urine Ketones Negative (Negative) Urine Blood 3+ /uL (Negative) Urine Nitrite Negative (Negative) Urine Bilirubin Negative (Negative) Urine Urobilinogen Normal mg/dL (Negative) Urine Leukocyte Esterase Negative /uL (Negative) Urine RBC 7 /hpf (0 - 4) Urine Microscopic WBC 3 /HPF (0-5) Urine Squamous Epithelial Cells Few /hpf (<5) Urine Bacteria Few /hpf (None Seen) Urine Glucose Normal mg/dL (Normal) Urine Opiates Screen Neg (NEGATIVE) Urine Fentanyl Screen Neg (NEGATIVE) Urine Barbiturates Screen Neg (NEGATIVE) Urine Phencyclidine Screen Neg (NEGATIVE) Urine Amphetamines Screen Neg (NEGATIVE) Urine Benzodiazepines Screen Neg (NEGATIVE) Urine Cocaine Screen Neg (NEGATIVE) Urine Cannabinoids Screen Pos (NEGATIVE) Other Laboratory Tests 10/28/25 05:37 Brief Hx & Hospital Course: This is a 45-year-old female with a past medical history of recurrent nephrolithiasis who presents with bilateral flank pain. The patient reports aching pain rated 8/10 that began two weeks ago and has worsened over the past three days. The pain is located in both flanks, is constant, and radiates to the lower abdomen. It is associated with diarrhea, nausea, and vomiting after eating. The patient also notes yellowing of both eyes that started one week ago and reports a loss of appetite. She denies dysuria but reports a sensation of incomplete bladder emptying. She is currently menstruating. CT abdomen/pelvis reveals mild bladder wall thickening, possibly due to underdistention versus early cystitis, and an enlarged uterus with a 3.1-cm left adnexal cyst. Pelvic ultrasound confirms a 3.1-cm left ovarian cyst with preserved blood flow and identifies a small pelvic calcification.. MRCP shows no evidence for cholelithiasis. choledocholithiasis. Normal caliber common bile duct, pancreatic duct. 1.9 cm left ovarian/ adnexal cystic lesion. Ultrasound of the liver no significant sonographic abnormality. Renal ultrasound no significant abnormality. patient is suspected to have Gilbert syndrome, likely presenting as isolated unconjugated hyperbilirubinemia. Gastroenterology was consulted and recommended fasting for 24 hours followed by repeat bilirubin testing to confirm the diagnosis. Patient was treated conservatively. Patient is being discharged home in hemodynamically stable condition. Patient was advised to follow up at [facility], PCP and Gastroenterology and urologist. All questions were answered. General examination- awake, alert, oriented HEENT- PEERLA, no acute nasal discharge Cardiovascular- S1-S2 audible, rate and rhythm regular, no murmur Respiratory- CTAB, no wheeze or rhonchi Gastrointestinal-nontender, bowel sound+. Nondistended Musculoskeletal-no acute joint swelling or tenderness or redness Lower extremity- no leg edema Neurological- cranial nerves intact, no acute dysarthria or dysphagia Psychiatry- denies depression or SI or HI Skin- no acute rash or purpura Plan of care discussed with Dr. Umanzor Operations or Procedures [address] [address] Ph: [phone] DIAGNOSTIC IMAGING Diagnostic Imaging Report : [id number] Signed PATIENT: LONG BIRDGES ACCT: [id number] UNIT: [id number] : 1980 LOC: ER ROOM / BED: / AGE / SEX: 45 / F ADM STATUS: REG ER SERVICE 1053 ORDERING PHYSICIAN: LIZA WALTER MD PROCEDURE(s): ABPL - CT AB PEL WO CON-NO ORAL OR IV REASON: stone ORDER NUMBER(s): [id number], ACCESSION NUMBER(s): [id number] Exam: CT CT AB PEL WO CON-NO ORAL OR IV History: Stone. Comparison Study: Report from CT abdomen pelvis 11/02/2023. Technique: Multidetector spiral CT of the abdomen and pelvis was performed from lung bases to pubic symphysis. Imaging was performed without intravenous contrast. Coronal and sagittal multiplanar reformats were obtained from the axial data set by the technologist. Radiation Dose : 1. Abdomen/Pelvis: CTDIvol 5.5 mGy, DLP 273.5 mGy*cm. Findings: Evaluation of vasculature and solid organs is limited due to lack of intravenous contrast use. Lung Bases: Lung bases are clear. Visualized portions of the heart and pericardium are unremarkable. Liver: The liver is normal in size. No focal lesions. Gallbladder and Biliary Tree: The gallbladder is unremarkable No intrahepatic or extrahepatic biliary ductal dilatation. Spleen: Unremarkable Pancreas: The pancreas is grossly unremarkable. Adrenal Glands: Unremarkable Kidneys: Kidneys are unremarkable without calculi or hydronephrosis. GI tract: The stomach is grossly normal in appearance. No evidence of small bowel wall thickening or abnormal dilatation to suggest bowel obstruction. The colon is unremarkable. The appendix is visualized and is normal in caliber. Peritoneum/mesentery/retroperitoneum. No evidence of free intraperitoneal air. No ascites. No evidence of suspicious lymphadenopathy. Abdominal Wall: Unremarkable. Vasculature: The visualized abdominal aorta is normal in size and caliber. Evaluation of abdominal and pelvic vessels is limited due to lack of intravenous contrast. Urinary Bladder: Underdistended urinary bladder. There is mucosal thickening of the 3 mm. Pelvic Organs: Uterus appears enlarged. There is a left adnexal cystic mass measuring 3.1 cm. Musculoskeletal: No aggressive focal bony lesions, acute fractures or dislocation. IMPRESSION: 1. Mild wall thickening of the urinary bladder measuring up to 3 mm could be related to underdistention. Cystitis is not excluded. 2. Enlarged uterus with a left adnexal cystic mass measuring 3.1 cm. Recommend further evaluation with pelvic ultrasound. ATED BY: INEZ CARROLL MD DICTATED DATE/TIME: 10/24/251131 SIGNED BY: INEZ CARROLL MD SIGNED DATE/TIME: 10/24/251131 CC: [address] [address] Ph: [phone] DIAGNOSTIC IMAGING Diagnostic Imaging Report : [id number] Signed PATIENT: LONG BRIDGES ACCT: [id number] UNIT: [id number] : 1980 LOC: ER ROOM / BED: / AGE / SEX: 45 / F ADM STATUS: REG ER SERVICE 1246 ORDERING PHYSICIAN: LIZA WALTER MD PROCEDURE(s): PELUS - PELVIC REASON: ovarytorision ORDER NUMBER(s): [id number], ACCESSION NUMBER(s): [id number] INDICATION: ovarytorision TECHNIQUE: Multiple real-time grayscale transabdominal and TV sonographic images along with color and duplex Doppler of the uterus and ovaries were obtained. COMPARISON: None FINDINGS: The uterus measures 8 x 4 x 6 cm. The endometrial stripe measures 0.3cm. The right ovary measures 3 x 2 x 1 cm. The left ovary measures 4 x 3 x 3 cm. 3 cm left ovarian cyst. Subsequent color and duplex Doppler interrogation of the ovaries demonstrated symmetric vascular flow to both ovaries, though this does not exclude the possibility of torsion due to the dual blood supply. IMPRESSION: 1. Hyperechoic shadowing structure in the posterior cul-de-sac measuring 1.4 x 1.3 x 0.8 cm. This correlates to calcification seen in the pelvis on CT dated 10/24/2025. ATED BY: LESLEY KRISHNAN MD DICTATED DATE/TIME: 10/24/251406 SIGNED BY: LESLEY KRISHNAN MD SIGNED DATE/TIME: 10/24/251406 CC: [address] [address] Ph: [phone] DIAGNOSTIC IMAGING Diagnostic Imaging Report : [id number] Signed PATIENT: LONG BRIDGES ACCT: [id number] UNIT: [id number] : 1980 LOC: CENTRAL ROOM / BED: [facility] / B AGE / SEX: 45 / F ADM STATUS: ADM IN SERVICE 1409 ORDERING PHYSICIAN: XAVIER MATIAS PROCEDURE(s): KIDUS - KIDNEY REASON: R/o nepholithiasis ORDER NUMBER(s): [id number], ACCESSION NUMBER(s): [id number] CLINICAL HISTORY: R/o nepholithiasis TECHNIQUE: Complete ultrasound exam of the kidneys and bladder was performed. COMPARISON: None FINDINGS: The right kidney has normal echogenicity and measures 9.1 cm. There is no focal parenchymal abnormality or evidence for stone. There is no hydronephrosis. The left kidney has normal echogenicity and measures 10.6 cm. There is no focal parenchymal abnormality or evidence for stone. There is no hydronephrosis. The bladder is grossly unremarkable. IMPRESSION: NO SIGNIFICANT SONOGRAPHIC ABNORMALITY OF THE KIDNEYS. ATED BY: LUANA YARBROUGH MD DICTATED DATE/TIME: 10/25/25 1509 SIGNED BY: LUANA YARBROUGH MD SIGNED DATE/TIME: 10/25/25 1509 CC: [place] [id number] Ph: [phone] DIAGNOSTIC IMAGING Diagnostic Imaging Report : [id number] Signed PATIENT: LONG BRIDGES ACCT: [id number] UNIT: [id number] : 1980 LOC: CENTRAL ROOM / BED: [facility] / B AGE / SEX: 45 / F ADM STATUS: ADM IN SERVICE 2116 ORDERING PHYSICIAN: XAVIER MATIAS PROCEDURE(s): LIVUS - LIVER REASON: Isolated unconjugated hyperbillirubinemia ORDER NUMBER(s): [id number], ACCESSION NUMBER(s): [id number] CLINICAL HISTORY: Isolated unconjugated hyperbillirubinemia TECHNIQUE: Transabdominal sonogram was performed of the right upper quadrant. COMPARISON: None FINDINGS: The liver is normal in echogenicity. There is no focal parenchymal abnormality. No intrahepatic biliary ductal dilatation is present. The liver measures 13.6 cm. The gallbladder is normal with no evidence for stones or wall thickening. The common bile duct is normal in caliber, measuring 5 mm. The visualized pancreas is grossly unremarkable. The right kidney is normal in echogenicity and measures 9.9 cm in length. There is no evidence for hydronephrosis or calculi. IMPRESSION: NO SIGNIFICANT SONOGRAPHIC ABNORMALITY OF THE IMAGED RIGHT UPPER QUADRANT. ATED BY: LUANA YARBROUGH MD DICTATED DATE/TIME: 10/25/252309 SIGNED BY: LUANA YARBROUGH MD SIGNED DATE/TIME: 10/25/252309 CC: [place] [id number] Ph: [phone] DIAGNOSTIC IMAGING Diagnostic Imaging Report : [id number] Signed PATIENT: LONG BRIDGES ACCT: [id number] UNIT: [id number] : 1980 LOC: CENTRAL ROOM / BED: [address] [place] [address] AGE / SEX: 45 / F ADM STATUS: ADM IN SERVICE 1004 ORDERING PHYSICIAN: CYDNEY HUTTON MD PROCEDURE(s): MRCP - MRCP MRI REASON: high bilirubin ORDER NUMBER(s): [id number], ACCESSION NUMBER(s): [id number] PROCEDURE: MRI MRCP MRI Indication: high bilirubin COMPARISON: 10/24/2025 TECHNIQUE: Multiplanar multisequence images of the brain are obtained. FINDINGS: Kidneys demonstrate no hydronephrosis. Spleen unremarkable. No evidence for cholelithiasis. No evidence for choledocholithiasis. CBD normal in caliber measuring 4 mm. Pancreas unremarkable. Pancreatic duct measures 2 mm in diameter. No T2 hyperintense lesions within the liver. Stomach partially distended. Imaged small bowel loops normal in caliber. 1.9 left ovarian/adnexal cystic appearing lesion. IMPRESSION: No evidence for cholelithiasis/ choledocholithiasis. Normal caliber common bile duct, pancreatic duct. 1.9 cm left ovarian/ adnexal cystic lesion ATED BY: SALLIE MOONEY MD DICTATED DATE/TIME: 10/26/25 1220 SIGNED BY: SALLIE MOONEY MD SIGNED DATE/TIME: 10/26/25 1220 CC: Condition at Discharge: Stable Final Diagnosis/Problems List # acute Gastroenteritis #Rule out C. 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 #Marijuana use disorder #Probable urinary tract infection #Left ovarian cyst #Enlarged uterus Discharge Disposition: Home Discharge Instruct/Medications Diet: Regular, Renal Activity: No Restrictions, As Tolerated Follow Up/Referral: DC clinic PCP [facility] for nephrolithiasis Medications: As prescribed Scheduled Hydrocodone-Acetaminophen (Hydrocodone Bitartrate/AC 5-325 mg), 1 TAB PO BID Methocarbamol (Methocarbamol), 1,500 MG PO QID Methocarbamol (Methocarbamol), 750 MG PO BID Scheduled PRN Cyclobenzaprine HCl (Cyclobenzaprine Hydrochlo), 5 MG PO TIDPRN PRN Discharge Statement: "Patient was advised to return to the ER or call 911 if any headaches, dizziness, shortness of breath, chest pain, abdominal pain, bleeding, fevers, or worsening of medical condition. Patient was counseled about treatment plan, medications, possible side effects, patientverbalized understanding. All questions were answered to the best of my ability. This discharge took greater then 30 minutes in planning, reviewing documentation, counseling the patient, and discussing with other team members." ASSESSMENT ASSESSMENT Assessment Acute gastroenteritis Gilbert syndrome Suspected UTI Nephrolithiasis Isolated unconjugated bilirubinemia Visit Coding STANDARD RES Billing Provider: A Date of Service if different f: Oct 28, 2025 Common Visit Codes: 46403-BEJ/OBS DISCH DAY >30min MARCIA CHRISTIANSON RESIDENT Oct 28, 2025 12:45
[2025-10-28 13:00] VITALS: BP 132/65; PULSE 67; RESP 16; TEMP 97.7; O2SAT 99
[2025-10-28 13:11] VITALS: BP 132/65; PULSE 67; RESP 16; TEMP 97.7; O2SAT 99
[2025-10-28 14:33] LABS: Bilirubin, Direct 0.4 mg/dL (<0.3); Bilirubin, Total 5.8 mg/dL (0.2-1.0)
--- NOTE | 2025-10-28 18:17 | DVHPN2 ---
Progress Note - Dictate Date Seen: Oct 28, 2025 (Late entryTime of visit 10:00 a.m.) Medical Necessity Reason Pt with a Central, PICC or Fol: No Subjective Patient seen at bedside resting comfortably There are no new complaints vital signs Vital Sign Date Time Temp Pulse Resp B/P (MAP) Pulse Ox O2 Delivery O2 Flow Rate FiO2 10/28/25 13:11 97.7 67 16 99 10/28/25 13:00 132/65 (87) 10/28/25 08:00 Room Air* 0 21 Total Intake and Output 10/27/25 10/27/25 10/28/25 15:00 23:00 07:00 Intake Total 50 ml 500 ml Balance 50 ml 500 ml objective General: NAD, AAOX3 Chest: lung camejo clear to auscultation Heart: RRR, no murmur Abdomen: non-distended, no tenderness to palpation, +BS laboratory and microbiology Laboratory Tests 10/28/25 05:37 Test 10/28/25 05:37 Range/Units Serum Glucose 93 74-106 mg/dL Problems(with codes): (1) Hyperbilirubinemia (congenital) (2) Acute abdominal pain (3) Ovarian mass Prognosis Assessment plan I advised the patient that she has had long-term history of indirect hyperbilirubinemia tracing back to her previous admissions even up to 2019 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
== END 2025-10-28 14:18 | disposition home or self-care (01) | DRG 392 ==
LOC: ER 10:14 → OVERFLOW 14:06 → CENTRAL 10-25 13:21
PROVIDERS: ADMIT Internal Medicine Geriatric Medicine; ATTEND Internal Medicine Geriatric Medicine
PROC: 05HB33Z Insertion of Infusion Device into Right Basilic Vein, Percutaneous Approach (ICD-10-PCS; principal; 2025-10-27)
PROC: B54MZZA Ultrasonography of Right Upper Extremity Veins, Guidance (ICD-10-PCS; 2025-10-27)
DX: K52.9 Noninfective gastroenteritis and colitis, unspecified (principal); B96.89 Other specified bacterial agents as the cause of diseases classified elsewhere; N39.0 Urinary tract infection, site not specified; E87.6 Hypokalemia; N85.2 Hypertrophy of uterus; N83.202 Unspecified ovarian cyst, left side; F12.90 Cannabis use, unspecified, uncomplicated; E80.6 Other disorders of bilirubin metabolism; E80.4 Gilbert syndrome
CPT/HCPCS: 36415; 74176; 74181; 76705; 76775; 76856; 80048; 80053; 80074; 80076; 80307; 80320; 80329; 81001; 82105; 82247; 82248; 82270; 82378; 82550; 82746; 83010; 83516; 83615; 83690; 83735; 85025; 85045; 85048; 85610; 85730; 86225; 86235; 86301; 86304; 86880; 87086; G0378; J1885; J2405